=== PATIENT | male | born 1955 | race Caucasian/White ===

== ENCOUNTER 2021-05-09 03:05 | Emergency (ER) | payer OTHER ==
--- OUTSIDE RECORDS SUMMARY | 2021-05-09 03:07 | XMS REPORT | Clinical Summary ---
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 farmer 09/10/2020 Telephone Patient Access Services Ilene Mathias, RN after 05/09/2020 Social History Tobacco Use Types Packs/Day Years Used Date Never Assessed Sex Assigned at Date Recorded Not on file Job Start Date Occupation Industry Not on file Not on file Not on file Last Filed Vital Signs Not on file Plan of Treatment Not on file Results Not on fileafter 05/09/2020 Insurance Payer Benefit Plan / Subscriber ID Effective Phone Address T ype Group Louise MARTÍNEZ [id number] 2005-[address] [employer], [place] Net rk SIGNATURE [id number] ADMIN Miguel Gonzalez Personal/Family Self 1955 [facility] [place] [address]
--- OUTSIDE RECORDS SUMMARY | 2021-05-09 03:08 | XMS REPORT | Continuity of Care Document ---
:1955 Author Organization [facility] t Address [address] [place] [address] Care Team Providers Name Role Phone MAME Attending Clinician Unavailable Nickell_K Attending Clinician Unavailable Mey LIAO Y Attending Clinician Unavailable ALMA WARE Attending Clinician Unavailable Pawel Weinstein Attending Clinician [phone] CALOS PANIAGUA Attending Clinician Unavailable Calos Paniagua Attending Clinician [phone] DANIELA Attending Clinician Unavailable Nickell_K Admitting Clinician Unavailable Olegario ENNIS Admitting Clinician Unavailable Payers Payer Name Policy Type Policy Number Effective Date Expiration Date Jose fried TANYA COLLINS [id number] (PPO) 00:00:00 TANYA PATEL [id number] 2007 MD Tremayne COLLINS-AETNA 00:00:00 SIGNATURE [id number] [facility] [address] [place] [address] [id number] Problems This patient has no known problems. Allergies, Adverse Reactions, Alerts Allergy Allergy Status Severity Reaction(s) Onset Inactive Treating Comm ents Source Name Type Date Date Clinician NO KNOWN Allergy Active [facility] Social History Social Habit Start Date Stop Date Quantity Comments Source Sex Assigned At [birth year] MD Hauser 00:00:00 00:00:00 Medications This patient has no known medications. Vital Signs Vital Name Observation Time Observation Value Comments Source HEIGHT 2020-09-12 12:25:00 188 cm WEIGHT 2020-09-12 12:25:00 111.131 kg HEIGHT 2020-09-12 03:07:00 188 cm WEIGHT 2020-09-12 03:07:00 111.131 kg HEIGHT 2020-09-12 12:25:00 188 cm WEIGHT 2020-09-12 12:25:00 111.131 kg HEIGHT 2020-09-12 03:07:00 188 cm WEIGHT 2020-09-12 03:07:00 111.131 kg Procedures This patient has no known procedures. Encounters Start End Encounter Admission Attending Care Care Encounter Source Date/Time Date/Time Type Type Clinicians Facility Department ID 2021-05-05 2021-05-05 Outpatient MAME [facility] [place] 00:00:00 00:00:00 GRICEL 411 [facility] 2021-05-03 2021-05-03 Outpatient MAME [facility] [place] 00:00:00 00:00:00 GRICEL 337 [facility] 2021-04-26 2021-04-26 Outpatient MAME [facility] [place] 00:00:00 00:00:00 GRICEL 183 [facility] 2021-04-21 2021-04-21 Outpatient Nickell_K [facility] [id number] [place] 03:17:00 03:17:00 [id number] [facility] 2021-04-21 2021-04-21 Outpatient MAME [facility] [place] 00:00:00 00:00:00 GRICEL 861 [facility] 2021-04-19 2021-04-19 Outpatient SHERRICOELVIE [facility] [place] 00:00:00 00:00:00 GRICEL 776 [facility] 2021-04-18 2021-04-18 Outpatient SHERRICOELVIE [facility] [place] 00:00:00 00:00:00 GRICEL 055 [facility] 2021-04-07 2021-04-07 Outpatient MAME [facility] [place] 00:00:00 00:00:00 GRICEL 903 [facility] 2021-04-05 2021-04-05 Outpatient MAME [facility] [place] 00:00:00 00:00:00 GRICEL 849 [facility] 2021-04-04 2021-04-04 Outpatient DARCOURT, [facility] [id number] [place] 00:00:00 00:00:00 GRICEL [address] 2021-03-24 2021-03-24 Outpatient DARCOURT, H [facility] [id number] [place] 00:00:00 00:00:00 GRICEL 240 [facility] 2021-03-22 2021-03-22 Outpatient DARCOURT, [facility] [id number] [place] 00:00:00 00:00:00 GRICEL 185 [facility] 2021-03-21 2021-03-21 Outpatient DARCOURT, [facility] [id number] [place] 00:00:00 00:00:00 GRICEL 876 [facility] 2021-03-10 2021-03-10 Outpatient DARCOURT, [facility] [id number] [place] 00:00:00 00:00:00 GRICEL 353 [facility] 2021-03-08 2021-03-08 Outpatient DARCOURT, [facility] [id number] [place] 00:00:00 00:00:00 GRICEL 258 [facility] 2021-03-04 2021-03-04 Outpatient DARCOURT, [facility] [id number] [place] 00:00:00 00:00:00 GRICEL 839 [facility] 2021-02-24 2021-02-24 Outpatient DARCOURT, [facility] [id number] [place] 00:00:00 00:00:00 GRICEL 936 [facility] 2021-02-22 2021-02-22 Outpatient DARCOURT, [facility] [id number] [place] 00:00:00 00:00:00 GRICEL 765 [facility] 2021-02-21 2021-02-21 Outpatient DARCOURT, [facility] [id number] [place] 00:00:00 00:00:00 GRICEL 084 [facility] 2021-02-16 2021-02-16 Outpatient DARCOURT, [facility] [id number] [place] 00:00:00 00:00:00 GRICEL 610 [facility] 2021-02-09 2021-02-09 Outpatient DARCOURT, [facility] [id number] [place] 00:00:00 00:00:00 GRICEL [address] 2021-02-07 2021-02-07 Outpatient DARCOURT, [facility] [id number] [place] 00:00:00 00:00:00 GRICEL [address] 2021-01-27 2021-01-27 Outpatient DARCOURT, [facility] [id number] [place] 00:00:00 00:00:00 GRICEL [address] 2021-01-25 2021-01-25 Outpatient DARCOURT, [facility] [id number] [place] 00:00:00 00:00:00 GRICEL [address] 2021-01-24 2021-01-24 Outpatient DARCOURT, [facility] [id number] [place] 00:00:00 00:00:00 GRICEL [address] 2021-01-14 2021-01-14 Outpatient DARCOURT, [facility] [id number] [place] 00:00:00 00:00:[address] GRICEL [address] 2021-01-12 2021-01-12 Outpatient DARCOURT, [facility] [id number] [place] 00:00:00 00:00:00 GRICEL [address] 2021-01-05 2021-01-05 Outpatient DARCOURT, [facility] [id number] [place] 00:00:00 00:00:00 GRICEL 136 [facility] 2020-12-29 2020-12-29 Outpatient DARCOURT, [facility] [id number] [place] 00:00:00 00:00:00 GRICEL 792 [facility] 2020-11-26 2020-11-26 [facility]ell[id number] [place] 01:03:00 01:03:00 [id number] [facility] 2020-10-21 2020-10-21 Outpatient Nickell_K [facility] [id number] [place] 02:00:00 02:00:00 [id number] [facility] 2020-09-16 2020-09-16 Outpatient Nickell_K [facility] [id number] [place] 01:21:00 01:21:00 [id number] [facility] 2020-09-12 2020-09-12 Emergency ER [facility] [id number] [facility] 02:33:00 02:33:00 2020-08-24 2020-08-24 Outpatient Nickell_K [facility] [id number] [place] 11:49:00 11:49:00 [id number] [facility] 2020-08-23 2020-08-23 Outpatient Nickell_K [facility] [id number] [place] 12:11:00 12:11:00 [id number] [facility] 2020-08-23 2020-08-23 Outpatient Weinstein, [facility] [id number] [id number] 00:00:00 00:00:00 Beau [id number] Pawel [id number] 2020-08-20 2020-08-20 Outpatient Nickell_K [facility] [id number] [place] 04:17:00 04:17:00 [id number] [facility] 2020-08-18 2020-08-19 Outpatient ARCELIA, [facility] 7500 [facility] 18:15:00 10:45:00 JUVENAL 2020-08-13 2020-08-13 Outpatient Nickell_K [facility] [id number] [place] 10:29:00 10:29:00 [id number] [facility] 2020-08-12 2020-08-12 Outpatient Nickell_K [facility] [id number] [place] 03:11:00 03:11:00 [id number] [facility] 2020-08-12 2020-08-12 Outpatient Arcelia, [facility] [id number] 00:00:00 00:00:00 Juvenal Hoffy [id number] 2020-08-03 2020-08-03 Outpatient Nickell_K [facility] [id number] [place] 10:17:00 10:17:00 [id number] [facility] 2020-08-03 2020-08-03 Outpatient Nickell_K [facility] [id number] [place] 10:17:00 10:17:00 [id number] [facility] 2020-07-29 2020-07-29 Outpatient [facility], [facility] [id number] [place] 00:00:00 00:00:00 JENNIFFER [address] Results Test Description Test Time Test Comments Results Result Sour e Comments TISSUE EXAM 2020-10-04 Surgical Pathology Report 14:09:00 Case: [id number] Authorizing Provider: Magan Kulkarni, Collected: 09/15/2020 02:34 PM Ordering Location: [address] Med/Surg Received: 09/17/2020 07:49 AM Pathologist: Corinne Godinez MD Specimen: Large Intestine, Colon - Right/Ascending, right colon This addendum is to report BRAF Results (performed at [facility]). For full report, please see scanned document below. BRAF MUTATION: DETECTEDMUTATION: c.1799T>A (p.V600E)Addendum electronically signed by Corinne Godinez MD on 10/04/2020 at 2:08 PMThis addendum is to report MMR results. Immunohistochemistry (IHC) Testing for Mismatch Repair (MMR) Proteins MLH1 Result: Loss of nuclear expressionMSH2 Result: Intact nuclear expressionMSH6 Result: Intact nuclear expressionPMS2 Result: Loss of nuclear expressionBackground nonneoplastic tissue / internal control with intact nuclear expressionIHC Interpretation#Loss of nuclear expression of MLH1 and PMS2: testing for methylation of the MLH1 promoterand / or mutation of BRAF is indicated (the presence of a BRAF V600E mutation and / or FXR8gppxuojlahc suggests that the tumor is sporadic and germline evaluation is probably not indicated;absence of both MLH1 methylation and of BRAF V600E mutation suggests the possibility of Moses syndrome and sequencing and / or large deletion / duplication testing of germline MLH1 may beindicated) BRAF testing and MLH1 promoter methylation are being performed, addendum report to follow. # There are exceptions to the above IHC interpretations. These results should not be considered inisolation, and clinical correlation with genetic counseling is recommended to assess the need forgermline testing.Addendum electronically signed by Corinne Godinez MD on 09/22/2020 at 9:20 AMCOLON, RIGHT ASCENDING, RIGHT HEMICOLECTOMY: - INVASIVE ADENOCARCINOMA, MODERATELY DIFFERENTIATED - TUMOR INVADES THROUGH MUSCULARIS PROPRIA INTO PERICOLONIC ADIPOSE TISSUE AND INVOLVES SEROSA - LYMPHOVASCULAR INVASION IS PRESENT - PROXIMAL, DISTAL AND MESENTERIC MARGINS, NEGATIVE FOR TUMOR - ADENOCARCINOMA INVOLVING ONE OF TWENTY-ONE LYMPH NODES (1/21) - MISMATCH REPAIR RESULTS BY IMMUNOHISTOCHEMISTRY ARE PENDING, ADDENDUM REPORT TO FOLLOW Signing Pathologist Direct Phone Line: [phone] y signed by Corinne Godinez MD on 09/21/2020 at 12:25 PMCOLON AND RECTUM: Resection, Including Transanal Disk Excision of Rectal Neoplasms (COLON AND RECTUM: RESECTION - All Specimens)8th Edition - Protocol posted: [email or web address] Procedure: Right hemicolectomy TUMOR Tumor Site: Cecum Tumor Site: Ileocecal valve Histologic Type: Adenocarcinoma Histologic Grade: G2: Moderately differentiated Tumor Size: Greatest dimension (Centimeters): 5.5 cm Tumor Extension: Tumor invades the visceral peritoneum Macroscopic Tumor Perforation: Not identified Lymphovascular Invasion: Present Perineural Invasion: Not identified Treatment Effect: No known presurgical therapy MARGINS Margins: All margins are uninvolved by invasive carcinoma, high grade dysplasia / intramucosal carcinoma, and low grade dysplasia Margins Examined: Proximal Margins Examined: Distal Margins Examined: Radial (circumferential) or Mesenteric Distance of Invasive Carcinoma from Closest Margin: 1.5 cm Closest Margin: Radial (circumferential) or Mesenteric LYMPH NODES Number of Lymph Nodes Involved: 1 Number of Lymph Nodes Examined: 21 Tumor Deposits: Not identified PATHOLOGIC STAGE CLASSIFICATION (pTNM, AJCC 8th Edition) Primary Tumor (pT): pT4a Regional Lymph Nodes (pN): pN1a 40382, 18048, 52955 U2Hsfyuemsd neoplasm of colonLarge intestineThe specimen is designated "large intestine" and is received in a fresh state labeled with the patient's name and a surgical pathology number. The specimen consists of a portion of terminal ileum, colon and appendix with pericolonic fat that measures approximately 22 x 12 x 8 cm overall. The specimen has both a line of surgical andrez on the ileal proximal and and the distal colonic ends. The specimen is opened longitudinally to reveal a section of ileum that measures approximately 5.5 cm in length, the ileocecal valve with approximately 3.5 cm in width. The colonic portion measures approximately 14 cm in length. Adjacent to the ileocecal valve on the colonic side is an ulcerating circumferential tumor (5.5 x 5.0 x 3.0 cm). The tumor invades through muscularis propria into pericolonic adipose tissue and abuts the serosal surface. The tumor is 1.5 cm from the closest mesenteric/radial margin, 5.5 cm from the proximal margin and 14 cm from the distal margin. Ink code:Serosa: BlackSection code: Ileal margin A1; colonic margin, A2. Sections of ileocecal valve adjacent to tumor in cassette A3. Random colon in A4. Sections of tumor to include the inked surface in A5- A8 and a section of the tumor adjacent to grossly normal colonic tissue in cassette A9. [employer] sections are of lymph nodes in cassette A10 through A14. Appendix, A15; A16, five possible lymph nodes; A17 to A18, tumor to serosa; A19, six possible lymph nodes; A20, one possible lymph node bisected. MG/pl Performed. The interpretation of this case included the use of immunohistochemistry or special stains.MLH1, MSH2, MSH6, ZNZ2Ikuaihf Slides Examined: In-house known positive controls were evaluated along with the test tissue. These control slides run alongside of the patients sample show appropriate staining. Internal positive and negative controls when available are evaluated Immunohistochemistry technical testing was performed at [facility], Pathology Laboratory where it was developed and its performance characteristics were determined. It has not been cleared or approved by the U.S. Food and Drug Administration. The FDA has determined that such clearance or approval is not necessary. The test is used for clinical purposes. It should not be regarded as investigational or for research. This laboratory is certified under the Clinical Laboratory Improvement Amendments of 1988 (CLIA-88) as qualified to perform high complexity clinical laboratory testing.[facility], Department of Pathology, [address] [place] [address], Zwnbgw [facility], Department of Pathology, [address] [place] [address], [facility], [facility] of [facility], [address] [place] [address], POCT-GLUCOSE METER 2020-09-20 11:08:00 Test Item Value Reference Range Interpretation Comme nts POC-GLUCOSE METER (BEAKER) 230 mg/dL 70-110 H : Notified RN/MD: TESTED AT [facility] 1317 (test code = 1538) [address] [facility] [address]: Computerized Table Cutter/Techni edwina ID = [id number] for Corry Zambrano en BASIC METABOLIC [id number] 05:02:00 Test Item Value Reference Range Interpretation Comments SODIUM (BEAKER) 133 meq/L 135-148 L (test code = 381) POTASSIUM (BEAKER) 3.5 meq/L 3.6-5.5 L (test code = 379) CHLORIDE (BEAKER) 102 meq/L 98-106 (test code = 382) CO2 (BEAKER) (test 22 meq/L 20-29 code = 355) BLOOD UREA NITROGEN 7 mg/dL 10-26 L (BEAKER) (test code = 354) CREATININE (BEAKER) 0.44 mg/dL 0.50-1.20 L (test code = 358) GLUCOSE RANDOM 177 mg/dL 70-110 H (BEAKER) (test code = 652) CALCIUM (BEAKER) 8.5 mg/dL 8.5-10.5 (test code = 697) EGFR (BEAKER) (test 195 mL/min/1.73 ESTIM ATED GFR IS code = 1092) sq m NOT ACCURATE CREATININE CLEARANCE IN PREDICTING GLOMERULAR FILTRATION RATE . ESTIMATED GFR I S NOT APPLICABLE FOR DIALYSIS PATIEN TS. Computerized Table Cutter ID - [id number] ID - [id number] ID - [id number] ID - FBSF70Yqiaihrg ID - KURI87Ttkikybf ID - MAMD36Iomhdslu ID - XNPR87Imbepbfz ID - XKVE70Mgjqbzwd ID - BFAJ19Pwptcxvy ID - UOXF49Uovmvobm ID - FQKG02Tklurdms ID - HJSZ69Naatyovk ID - [id number] (HEMOGRAM ONLY)2020-09-20 04:46:00 Test Item Value Reference Range Interpretation Comments WHITE BLOOD CELL COUNT (BEAKER) 9.7 K/ L 4.0-10.0 (test code = 775) RED BLOOD CELL COUNT (BEAKER) 3.64 M/ L 4.20-5.80 L (test code = 761) HEMOGLOBIN (BEAKER) (test code = 8.5 GM/DL 13.0-16.8 L 410) HEMATOCRIT (BEAKER) (test code = 27.6 % 36.0-50.0 L 411) MEAN CORPUSCULAR VOLUME (BEAKER) 75.8 fL 82.0-99.0 L (test code = 753) MEAN CORPUSCULAR HEMOGLOBIN 23.4 pg 27.0-33.0 L (BEAKER) (test code = 751) MEAN CORPUSCULAR HEMOGLOBIN CONC 30.8 GM/DL 32.0-36.0 L (BEAKER) (test code = 752) RED CELL DISTRIBUTION WIDTH 20.1 % 12.0-15.0 H (BEAKER) (test code = 412) PLATELET COUNT (BEAKER) (test 517 K/CU MM 150-430 H code = 756) MEAN PLATELET VOLUME (BEAKER) 8.5 fL 6.0-11.5 (test code = 754) NUCLEATED RED BLOOD CELLS 0 /100 WBC 0-0 (BEAKER) (test code = 413) POCT-GLUCOSE [id number] 21:32:00 Test Item Value Reference Range Interpretation Comments POC-GLUCOSE METER 200 mg/dL 70-110 H : TESTED A T [facility] 1317 (BEAKER) (test code [address], = 1538) [place] [address]: Computerized Table Cutter/Techni edwina ID = [id number] for Conchis Mixon POCT-GLUCOSE [id number] 15:28:00 Test Item Value Reference Range Interpretation Comments POC-GLUCOSE METER 258 mg/dL 70-110 H : TESTED A T [facility] 1317 (BEAKER) (test code [address], = 1538) [place] [id number]: Computerized Table Cutter/Techni edwina ID = [id number] for Iesha verma, Barbara POCT-GLUCOSE [id number] 11:17:00 Test Item Value Reference Range Interpretation Comments POC-GLUCOSE METER 188 mg/dL 70-110 H : TESTED A T [facility] 1317 (BEAKER) (test code [address], = 1538) [place] [id number]: Computerized Table Cutter/Techni edwina ID = [id number] for Iesha verma, Barbara POCT-GLUCOSE [id number] 08:58:00 Test Item Value Reference Range Interpretation Comments POC-GLUCOSE METER 188 mg/dL 70-110 H : TESTED A T [facility]17 (BEAKER) (test code [address], = 1538) [place] [id number]: Computerized Table Cutter/Techni edwina ID = [id number] for Barbara Mcneill POCT-GLUCOSE [id number] 20:56:00 Test Item Value Reference Range Interpretation Comments POC-GLUCOSE METER 217 mg/dL 70-110 H : TESTED A T [facility]17 (BEAKER) (test code [address], = 1538) [place] [id number]: Computerized Table Cutter/Techni edwina ID = [id number] for Sammie Aparicio POCT-GLUCOSE [id number] 16:52:00 Test Item Value Reference Range Interpretation Comments POC-GLUCOSE METER 137 mg/dL 70-110 H : TESTED A T [facility]17 (BEAKER) (test code [address], = 1538) [place] [address]: Computerized Table Cutter/Techni edwina ID = [id number] for Lulu Irais phan POCT-GLUCOSE [id number] 11:26:00 Test Item Value Reference Range Interpretation Comments POC-GLUCOSE METER 238 mg/dL 70-110 H : TESTED A T [facility]17 (BEAKER) (test code [address], = 1538) [place] [address]: Computerized Table Cutter/Techni edwina ID = [id number] for Barbara Mcneill POCT-GLUCOSE [id number] 08:12:00 Test Item Value Reference Range Interpretation Comments POC-GLUCOSE METER 199 mg/dL 70-110 H : TESTED A T [facility] 1317 (BEAKER) (test code [address], = 1538) [place] [address]: Computerized Table Cutter/Techni edwina ID = [id number] for Barbara Mcneill BASIC METABOLIC [id number] 06:20:00 Test Item Value Reference Range Interpretation Comments SODIUM (BEAKER) 134 meq/L 135-148 L (test code = 381) POTASSIUM (BEAKER) 3.8 meq/L 3.6-5.5 (test code = 379) CHLORIDE (BEAKER) 102 meq/L 98-106 (test code = 382) CO2 (BEAKER) (test 23 meq/L 20- code = 355) BLOOD UREA NITROGEN < mg/dL 10-26 L (BEAKER) (test code = 354) CREATININE (BEAKER) 0.55 mg/dL 0.50-1.20 (test code = 358) GLUCOSE RANDOM 176 mg/dL 70-110 H (BEAKER) (test code = 652) CALCIUM (BEAKER) 8.4 mg/dL 8.5-10.5 L (test code = 697) EGFR (BEAKER) (test 150 mL/min/1.73 ESTIM ATED GFR IS code = 1092) sq m NOT ACCURATE CREATININE CLEARANCE IN PREDICTING GLOMERULAR FILTRATION RATE . ESTIMATED GFR I S NOT APPLICABLE FOR DIALYSIS PATIEN TS. Computerized Table Cutter ID - [id number] ID - [id number] ID - KREE17Vtqzwkxj ID - CJSA75Ugxezpnx ID - MSZA52Wfromkaw ID - LNUM20Hgriobuu ID - MFSW97Wzdkzeop ID - JVHY57Lyaesygs ID - NVDC85Ztcinpho ID - QXTJ69Mdqvrilj ID - LLNY26Jxbrtwrq ID - [id number] (HEMOGRAM ONLY)2020-09-18 05:59:00 Test Item Value Reference Range Interpretation Comments WHITE BLOOD CELL COUNT (BEAKER) 12.4 K/ L 4.0-10.0 H (test code = 775) RED BLOOD CELL COUNT (BEAKER) 3.33 M/ L 4.20-5.80 L (test code = 761) HEMOGLOBIN (BEAKER) (test code = 8.1 GM/DL 13.0-16.8 L 410) HEMATOCRIT (BEAKER) (test code = 25.8 % 36.0-50.0 L 411) MEAN CORPUSCULAR VOLUME (BEAKER) 77.5 fL 82.0-99.0 L (test code = 753) MEAN CORPUSCULAR HEMOGLOBIN 24.3 pg 27.0-33.0 L (BEAKER) (test code = 751) MEAN CORPUSCULAR HEMOGLOBIN CONC 31.4 GM/DL 32.0-36.0 L (BEAKER) (test code = 752) RED CELL DISTRIBUTION WIDTH 20.2 % 12.0-15.0 H (BEAKER) (test code = 412) PLATELET COUNT (BEAKER) (test 442 K/CU MM 150-430 H code = 756) MEAN PLATELET VOLUME (BEAKER) 8.9 fL 6.0-11.5 (test code = 754) NUCLEATED RED BLOOD CELLS 0 /100 WBC 0-0 (BEAKER) (test code = 413) POCT-GLUCOSE [id number] 21:39:00 Test Item Value Reference Range Interpretation Comments POC-GLUCOSE METER 192 mg/dL 70-110 H : TESTED A T [facility] (BEAKER) (test code [facility], = 1538) [place] [id number] 478: Computerized Table Cutter/Techni edwina ID = [id number] for Conchis Mixon POCT-GLUCOSE [id number] 13:18:00 Test Item Value Reference Range Interpretation Comments POC-GLUCOSE METER 175 mg/dL 70-110 H : TESTED A T [facility] 1317 (BEAKER) ([facility], = 1538) [place] [id number]: Computerized Table Cutter/Techni edwina ID = [id number] for Yordan oscar Nicki POCT-GLUCOSE [id number] 09:12:00 Test Item Value Reference Range Interpretation Comments POC-GLUCOSE METER 209 mg/dL 70-110 H : TESTED A T [facility] 1317 (BEAKER) (test [facility], = 1538) [place] [id number]: Computerized Table Cutter/Techni edwina ID = [id number] for Yordan h, Nicki COMPREHENSIVE METABOLIC [id number] 06:04:00 Test Item Value Reference Range Interpretation Comments TOTAL PROTEIN 5.3 gm/dL 6.0-8.5 L (BEAKER) (test code = 770) ALBUMIN (BEAKER) 2.8 g/dL 3.5-5.0 L (test code = 1145) ALKALINE PHOSPHATASE 64 U/L 30-115 (BEAKER) (test code = 346) BILIRUBIN TOTAL 0.5 mg/dL 0.1-1.2 (BEAKER) (test code = 377) SODIUM (BEAKER) (test 133 meq/L 135-148 L code = 381) POTASSIUM (BEAKER) 3.6 meq/L 3.6-5.5 (test code = 379) CHLORIDE (BEAKER) 101 meq/L 98-106 (test code = 382) CO2 (BEAKER) (test 22 meq/L 20-29 code = 355) BLOOD UREA NITROGEN 3 mg/dL 10-26 L (BEAKER) (test code = 354) CREATININE (BEAKER) 0.54 mg/dL 0.50-1.20 (test code = 358) GLUCOSE RANDOM 167 mg/dL 70-110 H (BEAKER) (test code = 652) CALCIUM (BEAKER) 8.3 mg/dL 8.5-10.5 L (test code = 697) AST (SGOT) (BEAKER) 11 U/L 5-40 (test code = 353) ALT (SGPT) (BEAKER) 10 U/L 5-50 (test code = 347) EGFR (BEAKER) (test 154 ESTIMATE D GFR IS code = 1092) mL/min/1.73 sq NOT ACCURA TE m CREATININE CLEARANCE IN PREDICTING GLOMERULAR FILTRATION RATE . ESTIMATED GFR I S NOT APPLICABLE FOR DIALYSIS PATIEN TS. Computerized Table Cutter ID - [id number] ID - VVVQ87Iegsqmex ID - KNDV80Sgswhhgg ID - OXQM86Qjkwasos ID - BNGB31Oqfaqxhj ID - QPTC49Smlrpjad ID - JZRW01Aooujitg ID - NRLZ26Jvysiodt ID - VFFP75Hwoqkttv ID - FHXV78Xajrseok ID - PXVP72Axeyfjfu ID - CDOD06Tampznbg ID - MXKJ89Uwqtdfnb ID - DPDA90Xtnnawss ID - UYAM80Zvjmwjqc ID - [id number] 06:01:00 Test Item Value Reference Range Interpretation Comments MAGNESIUM (BEAKER) (test code = 1.3 mg/dL 1.5-3.0 L 627) Computerized Table Cutter ID - SHYD68Iuxkyfxi ID - FFJK50[place] ID - ATJI07Ztvgsjbp ID - [id number] CBC W/PLT COUNT & AUTO [id number] 05:49:00 Test Item Value Reference Range Interpretation Comments WHITE BLOOD CELL COUNT (BEAKER) 15.2 K/ L 4.0-10.0 H (test code = 775) RED BLOOD CELL COUNT (BEAKER) 3.50 M/ L 4.20-5.80 L (test code = 761) HEMOGLOBIN (BEAKER) (test code = 8.5 GM/DL 13.0-16.8 L 410) HEMATOCRIT (BEAKER) (test code = 26.7 % 36.0-50.0 L 411) MEAN CORPUSCULAR VOLUME (BEAKER) 76.3 fL 82.0-99.0 L (test code = 753) MEAN CORPUSCULAR HEMOGLOBIN 24.3 pg 27.0-33.0 L (BEAKER) (test code = 751) MEAN CORPUSCULAR HEMOGLOBIN CONC 31.8 GM/DL 32.0-36.0 L (BEAKER) (test code = 752) RED CELL DISTRIBUTION WIDTH 20.4 % 12.0-15.0 H (BEAKER) (test code = 412) PLATELET COUNT (BEAKER) (test 407 K/CU MM 150-430 code = 756) MEAN PLATELET VOLUME (BEAKER) 8.8 fL 6.0-11.5 (test code = 754) NUCLEATED RED BLOOD CELLS 0 /100 WBC 0-0 (BEAKER) (test code = 413) NEUTROPHILS RELATIVE PERCENT 68 % (BEAKER) (test code = 429) LYMPHOCYTES RELATIVE PERCENT 15 % (BEAKER) (test code = 430) MONOCYTES RELATIVE PERCENT 13 % (BEAKER) (test code = 431) EOSINOPHILS RELATIVE PERCENT 3 % (BEAKER) (test code = 432) BASOPHILS RELATIVE PERCENT 0 % (BEAKER) (test code = 437) NEUTROPHILS ABSOLUTE COUNT 10.31 K/ L 1.80-8.00 H (BEAKER) (test code = 670) LYMPHOCYTES ABSOLUTE COUNT 2.31 K/ L 1.48-4.50 (BEAKER) (test code = 414) MONOCYTES ABSOLUTE COUNT (BEAKER) 1.99 K/ L 0.00-1.30 H (test code = 415) EOSINOPHILS ABSOLUTE COUNT 0.45 K/ L 0.00-0.50 (BEAKER) (test code = 416) BASOPHILS ABSOLUTE COUNT (BEAKER) 0.05 K/ L 0.00-0.20 (test code = 417) IMMATURE GRANULOCYTES-RELATIVE 1 % 0-0 H PERCENT (BEAKER) (test code = 2801) POCT-GLUCOSE [id number] 19:43:00 Test Item Value Reference Range Interpretation Comments POC-GLUCOSE METER 159 mg/dL 70-110 H : TESTED A T [facility] (BEAKER) (test code [facility] [address], = 1538) [facility] [address]: Computerized Table Cutter/Techni edwina ID = [id number] for Tamie Schreiber POCT-GLUCOSE [id number] 15:21:00 Test Item Value Reference Range Interpretation Comments POC-GLUCOSE METER 177 mg/dL 70-110 H : TESTED A T [facility] [address]17 (BEAKER) (test code [address], = 1538) [facility] 77 [address]: Computerized Table Cutter/Techni edwina ID = [id number] for Buff parris, Rula POCT-GLUCOSE [id number] 11:26:00 Test Item Value Reference Range Interpretation Comments POC-GLUCOSE METER 162 mg/dL 70-110 H : TESTED A T [facility] [address]17 (BEAKER) (test code [address], = 1538) [facility] 77 [address]: Computerized Table Cutter/Techni edwina ID = [id number] for Buff ord, Rula CBC W/PLT COUNT & AUTO [id number] 07:42:00 Test Item Value Reference Range Interpretation Comments WHITE BLOOD CELL COUNT (BEAKER) 16.5 K/ L 4.0-10.0 H (test code = 775) RED BLOOD CELL COUNT (BEAKER) 3.50 M/ L 4.20-5.80 L (test code = 761) HEMOGLOBIN (BEAKER) (test code = 8.5 GM/DL 13.0-16.8 L 410) HEMATOCRIT (BEAKER) (test code = 26.9 % 36.0-50.0 L 411) MEAN CORPUSCULAR VOLUME (BEAKER) 76.9 fL 82.0-99.0 L (test code = 753) MEAN CORPUSCULAR HEMOGLOBIN 24.3 pg 27.0-33.0 L (BEAKER) (test code = 751) MEAN CORPUSCULAR HEMOGLOBIN CONC 31.6 GM/DL 32.0-36.0 L (BEAKER) (test code = 752) RED CELL DISTRIBUTION WIDTH 20.1 % 12.0-15.0 H (BEAKER) (test code = 412) PLATELET COUNT (BEAKER) (test 363 K/CU MM 150-430 code = 756) MEAN PLATELET VOLUME (BEAKER) 8.8 fL 6.0-11.5 (test code = 754) NUCLEATED RED BLOOD CELLS 0 /100 WBC 0-0 (BEAKER) (test code = 413) NEUTROPHILS RELATIVE PERCENT 76 % (BEAKER) (test code = 429) LYMPHOCYTES RELATIVE PERCENT 11 % (BEAKER) (test code = 430) MONOCYTES RELATIVE PERCENT 11 % (BEAKER) (test code = 431) EOSINOPHILS RELATIVE PERCENT 2 % (BEAKER) (test code = 432) BASOPHILS RELATIVE PERCENT 0 % (BEAKER) (test code = 437) NEUTROPHILS ABSOLUTE COUNT 12.52 K/ L 1.80-8.00 H (BEAKER) (test code = 670) LYMPHOCYTES ABSOLUTE COUNT 1.75 K/ L 1.48-4.50 (BEAKER) (test code = 414) MONOCYTES ABSOLUTE COUNT (BEAKER) 1.84 K/ L 0.00-1.30 H (test code = 415) EOSINOPHILS ABSOLUTE COUNT 0.25 K/ L 0.00-0.50 (BEAKER) (test code = 416) BASOPHILS ABSOLUTE COUNT (BEAKER) 0.05 K/ L 0.00-0.20 (test code = 417) IMMATURE GRANULOCYTES-RELATIVE 1 % 0-0 H PERCENT (BEAKER) (test code = 2801) COMPREHENSIVE METABOLIC [id number] 06:05:00 Test Item Value Reference Range Interpretation Comments TOTAL PROTEIN 5.6 gm/dL 6.0-8.5 L (BEAKER) (test code = 770) ALBUMIN (BEAKER) 3.0 g/dL 3.5-5.0 L (test code = 1145) ALKALINE PHOSPHATASE 68 U/L 30-115 (BEAKER) (test code = 346) BILIRUBIN TOTAL 0.4 mg/dL 0.1-1.2 (BEAKER) (test code = 377) SODIUM (BEAKER) (test 132 meq/L 135-148 L code = 381) POTASSIUM (BEAKER) 4.2 meq/L 3.6-5.5 (test code = 379) CHLORIDE (BEAKER) 102 meq/L 98-106 (test code = 382) CO2 (BEAKER) (test 20 meq/L 20-29 code = 355) BLOOD UREA NITROGEN < mg/dL 10-26 L (BEAKER) (test code = 354) CREATININE (BEAKER) 0.59 mg/dL 0.50-1.20 (test code = 358) GLUCOSE RANDOM 162 mg/dL 70-110 H (BEAKER) (test code = 652) CALCIUM (BEAKER) 8.6 mg/dL 8.5-10.5 (test code = 697) AST (SGOT) (BEAKER) 19 U/L 5-40 (test code = 353) ALT (SGPT) (BEAKER) 10 U/L 5-50 (test code = 347) EGFR (BEAKER) (test 139 ESTIMATE D GFR IS code = 1092) mL/min/1.73 sq NOT ACCURA TE m CREATININE CLEARANCE IN PREDICTING GLOMERULAR FILTRATION RATE . ESTIMATED GFR I S NOT APPLICABLE FOR DIALYSIS PATIEN TS. Computerized Table Cutter ID - LITOOperator ID - LITOOperator ID - LITOOperator ID - LITOOperator ID - LITOOperator ID - LITOOperator ID - LITOOperator ID - LITOOperator ID - LITOOperator ID - LITOOperator ID - LITOOperator ID - LITOOperator ID - LITOOperator ID - LITOOperator ID - [id number] 06:02:00 Test Item Value Reference Range Interpretation Comments MAGNESIUM (BEAKER) (test code = 1.3 mg/dL 1.5-3.0 L 627) Computerized Table Cutter ID - LITOOperator ID - LITOOperator ID - LITOOperator ID - LITOBASIC METABOLIC [id number] 03:21:00 Test Item Value Reference Range Interpretation Comments SODIUM (BEAKER) 133 meq/L 135-148 L (test code = 381) POTASSIUM (BEAKER) 3.9 meq/L 3.6-5.5 (test code = 379) CHLORIDE (BEAKER) 102 meq/L 98-106 (test code = 382) CO2 (BEAKER) (test 21 meq/L 20-29 code = 355) BLOOD UREA NITROGEN < mg/dL 10-26 L (BEAKER) (test code = 354) CREATININE (BEAKER) 0.56 mg/dL 0.50-1.20 (test code = 358) GLUCOSE RANDOM 153 mg/dL 70-110 H (BEAKER) (test code = 652) CALCIUM (BEAKER) 8.6 mg/dL 8.5-10.5 (test code = 697) EGFR (BEAKER) (test 147 mL/min/1.73 ESTIM ATED GFR IS code = 1092) sq m NOT ACCURATE CREATININE CLEARANCE IN PREDICTING GLOMERULAR FILTRATION RATE . ESTIMATED GFR I S NOT APPLICABLE FOR DIALYSIS PATIEN TS. Computerized Table Cutter ID - LITOOperator ID - LITOOperator ID - LITOOperator ID - LITOOperator ID - LITOOperator ID - LITOOperator ID - LITOOperator ID - LITOOperator ID - LITOOperator ID - LITOOperator ID - LITOOperator ID - LITOOperator ID - LITOCBC W/PLT COUNT & AUTO [id number] 02:54:00 Test Item Value Reference Range Interpretation Comments WHITE BLOOD CELL COUNT (BEAKER) 20.0 K/ L 4.0-10.0 H (test code = 775) RED BLOOD CELL COUNT (BEAKER) 3.57 M/ L 4.20-5.80 L (test code = 761) HEMOGLOBIN (BEAKER) (test code = 8.7 GM/DL 13.0-16.8 L 410) HEMATOCRIT (BEAKER) (test code = 27.3 % 36.0-50.0 L 411) MEAN CORPUSCULAR VOLUME (BEAKER) 76.5 fL 82.0-99.0 L (test code = 753) MEAN CORPUSCULAR HEMOGLOBIN 24.4 pg 27.0-33.0 L (BEAKER) (test code = 751) MEAN CORPUSCULAR HEMOGLOBIN CONC 31.9 GM/DL 32.0-36.0 L (BEAKER) (test code = 752) RED CELL DISTRIBUTION WIDTH 19.9 % 12.0-15.0 H (BEAKER) (test code = 412) PLATELET COUNT (BEAKER) (test 383 K/CU MM 150-430 code = 756) MEAN PLATELET VOLUME (BEAKER) 8.9 fL 6.0-11.5 (test code = 754) NUCLEATED RED BLOOD CELLS 0 /100 WBC 0-0 (BEAKER) (test code = 413) NEUTROPHILS RELATIVE PERCENT 78 % (BEAKER) (test code = 429) LYMPHOCYTES RELATIVE PERCENT 11 % (BEAKER) (test code = 430) MONOCYTES RELATIVE PERCENT 10 % (BEAKER) (test code = 431) EOSINOPHILS RELATIVE PERCENT 0 % (BEAKER) (test code = 432) BASOPHILS RELATIVE PERCENT 0 % (BEAKER) (test code = 437) NEUTROPHILS ABSOLUTE COUNT 15.57 K/ L 1.80-8.00 H (BEAKER) (test code = 670) LYMPHOCYTES ABSOLUTE COUNT 2.27 K/ L 1.48-4.50 (BEAKER) (test code = 414) MONOCYTES ABSOLUTE COUNT (BEAKER) 1.89 K/ L 0.00-1.30 H (test code = 415) EOSINOPHILS ABSOLUTE COUNT 0.08 K/ L 0.00-0.50 (BEAKER) (test code = 416) BASOPHILS ABSOLUTE COUNT (BEAKER) 0.07 K/ L 0.00-0.20 (test code = 417) IMMATURE GRANULOCYTES-RELATIVE 1 % 0-0 H PERCENT (BEAKER) (test code = 2801) POCT-GLUCOSE [id number] 22:27:00 Test Item Value Reference Range Interpretation Comments POC-GLUCOSE METER 178 mg/dL 70-110 H : TESTED A T [facility] 1317 (BEAKER) (test code [facility], = 1538) [place] [id number]: Computerized Table Cutter/Techni edwina ID = [id number] for Marceilno kerr Conchis POCT-GLUCOSE [id number] 17:28:00 Test Item Value Reference Range Interpretation Comments POC-GLUCOSE METER 216 mg/dL 70-110 H : TESTED A T [facility] 1317 (BEAKER) (test code [facility], = 1538) [place] [address]: Computerized Table Cutter/Techni edwina ID = [id number] for Buff ord, Rula POCT-GLUCOSE [id number] 11:17:00 Test Item Value Reference Range Interpretation Comments POC-GLUCOSE METER 155 mg/dL 70-110 H : TESTED A T [facility] 1317 (BEAKER) (test code [facility] [address] [facility], = 1538) [place] [address]: Computerized Table Cutter/Techni edwina ID = [id number] for Buff ord, Rula POCT-GLUCOSE [id number] 07:16:00 Test Item Value Reference Range Interpretation Comments POC-GLUCOSE METER 152 mg/dL 70-110 H : TESTED A T [facility] 1317 (BEAKER) ([facility] 15[facility] [place] [id number]: Computerized Table Cutter/Techni edwina ID = [id number] for Buff ord, Rula POCT-GLUCOSE [id number] 20:28:00 Test Item Value Reference Range Interpretation Comments POC-GLUCOSE METER 176 mg/dL 70-110 H : TESTED A T [facility] 1317 (BEAKER) (test code [facility], = 1538) [place] [id number]: Computerized Table Cutter/Techni edwina ID = [id number] for Tamie Schreiber POCT-GLUCOSE [id number] 16:23:00 Test Item Value Reference Range Interpretation Comments POC-GLUCOSE METER 149 mg/dL 70-110 H : TESTED A T [facility] [address]17 (BEAKER) (test code [facility], = 1538) [place] [id number]: Computerized Table Cutter/Techni edwina ID = [id number] for Lulu u, Irais POCT-GLUCOSE [id number] 12:24:00 Test Item Value Reference Range Interpretation Comments POC-GLUCOSE METER 175 mg/dL 70-110 H : TESTED A T [facility] [address]17 (BEAKER) (test code [facility], = 1538) [place] [id number]: Computerized Table Cutter/Techni edwina ID = [id number] for Lulu u, Irais POCT-GLUCOSE [id number] 08:03:00 Test Item Value Reference Range Interpretation Comments POC-GLUCOSE METER 158 mg/dL 70-110 H : TESTED A T [facility] [address]17 (BEAKER) (test [facility] = 1538) [place] [id number]: Computerized Table Cutter/Techni edwina ID = [id number] for Lulu u, Irais BASIC METABOLIC [id number] 05:57:00 Test Item Value Reference Range Interpretation Comments SODIUM (BEAKER) 134 meq/L 135-148 L (test code = 381) POTASSIUM (BEAKER) 4.0 meq/L 3.6-5.5 (test code = 379) CHLORIDE (BEAKER) 104 meq/L 98-106 (test code = 382) CO2 (BEAKER) (test 23 meq/L 20-29 code = 355) BLOOD UREA NITROGEN 5 mg/dL 10-26 L (BEAKER) (test code = 354) CREATININE (BEAKER) 0.56 mg/dL 0.50-1.20 (test code = 358) GLUCOSE RANDOM 160 mg/dL 70-110 H (BEAKER) (test code = 652) CALCIUM (BEAKER) 8.1 mg/dL 8.5-10.5 L (test code = 697) EGFR (BEAKER) (test 147 mL/min/1.73 ESTIM ATED GFR IS code = 1092) sq m NOT ACCURATE CREATININE CLEARANCE IN PREDICTING GLOMERULAR FILTRATION RATE . ESTIMATED GFR I S NOT APPLICABLE FOR DIALYSIS PATIEN TS. Computerized Table Cutter ID - JUSTINOperator ID - JUSTINOperator ID - JUSTINOperator ID - JUSTINOperator ID - JUSTINOperator ID - JUSTINOperator ID - JUSTINOperator ID - JUSTINOperator ID - JUSTINOperator ID - [id number] 05:41:00 Test Item Value Reference Range Interpretation Comments MAGNESIUM (BEAKER) (test code = 1.6 mg/dL 1.5-3.0 627) Computerized Table Cutter ID - JUSTINOperator ID - JUSTINOperator ID - JUSTINOperator ID - ELLIE CBC W/PLT COUNT & AUTO [id number] 05:30:00 Test Item Value Reference Range Interpretation Comments WHITE BLOOD CELL COUNT (BEAKER) 12.1 K/ L 4.0-10.0 H (test code = 775) RED BLOOD CELL COUNT (BEAKER) 3.18 M/ L 4.20-5.80 L (test code = 761) HEMOGLOBIN (BEAKER) (test code = 7.4 GM/DL 13.0-16.8 L 410) HEMATOCRIT (BEAKER) (test code = 23.5 % 36.0-50.0 L 411) MEAN CORPUSCULAR VOLUME (BEAKER) 73.9 fL 82.0-99.0 L (test code = 753) MEAN CORPUSCULAR HEMOGLOBIN 23.3 pg 27.0-33.0 L (BEAKER) (test code = 751) MEAN CORPUSCULAR HEMOGLOBIN CONC 31.5 GM/DL 32.0-36.0 L (BEAKER) (test code = 752) RED CELL DISTRIBUTION WIDTH 18.4 % 12.0-15.0 H (BEAKER) (test code = 412) PLATELET COUNT (BEAKER) (test 344 K/CU MM 150-430 code = 756) MEAN PLATELET VOLUME (BEAKER) 9.0 fL 6.0-11.5 (test code = 754) NUCLEATED RED BLOOD CELLS 0 /100 WBC 0-0 (BEAKER) (test code = 413) NEUTROPHILS RELATIVE PERCENT 63 % (BEAKER) (test code = 429) LYMPHOCYTES RELATIVE PERCENT 22 % (BEAKER) (test code = 430) MONOCYTES RELATIVE PERCENT 11 % (BEAKER) (test code = 431) EOSINOPHILS RELATIVE PERCENT 3 % (BEAKER) (test code = 432) BASOPHILS RELATIVE PERCENT 1 % (BEAKER) (test code = 437) NEUTROPHILS ABSOLUTE COUNT 7.63 K/ L 1.80-8.00 (BEAKER) (test code = 670) LYMPHOCYTES ABSOLUTE COUNT 2.60 K/ L 1.48-4.50 (BEAKER) (test code = 414) MONOCYTES ABSOLUTE COUNT (BEAKER) 1.35 K/ L 0.00-1.30 H (test code = 415) EOSINOPHILS ABSOLUTE COUNT 0.30 K/ L 0.00-0.50 (BEAKER) (test code = 416) BASOPHILS ABSOLUTE COUNT (BEAKER) 0.07 K/ L 0.00-0.20 (test code = 417) IMMATURE GRANULOCYTES-RELATIVE 1 % 0-0 H PERCENT (BEAKER) (test code = 2801) HEMOGLOBIN AND [id number] 20:17:00 Test Item Value Reference Range Interpretation Comments HEMOGLOBIN (BEAKER) (test code = 7.6 GM/DL 13.0-16.8 L 410) HEMATOCRIT (BEAKER) (test code = 24.0 % 36.0-50.0 L 411) POCT-GLUCOSE [id number] 15:16:00 Test Item Value Reference Range Interpretation Comments POC-GLUCOSE METER 202 mg/dL 70-110 H : TESTED A [facility] 1317 (BEAKER) (test code [facility] [address], = 1538) [facility] [address]: Computerized Table Cutter/Techni edwina ID = [id number] for Buff ord, Rula HEMOGLOBIN AND [id number] 12:24:00 Test Item Value Reference Range Interpretation Comments HEMOGLOBIN (BEAKER) (test code = 8.5 GM/DL 13.0-16.8 L 410) HEMATOCRIT (BEAKER) (test code = 26.9 % 36.0-50.0 L 411) POCT-GLUCOSE [id number] 11:34:00 Test Item Value Reference Range Interpretation Comments POC-GLUCOSE METER 130 mg/dL 70-110 H : TESTED A T [facility] [address] (BEAKER) (test code [address], = 1538) [facility] [place] [address]: Computerized Table Cutter/Techni edwina ID = [id number] for Nu [place] CBC W/PLT COUNT & AUTO [id number] 07:42:00 Test Item Value Reference Range Interpretation Comments WHITE BLOOD CELL COUNT (BEAKER) 15.3 K/ L 4.0-10.0 H (test code = 775) RED BLOOD CELL COUNT (BEAKER) 3.34 M/ L 4.20-5.80 L (test code = 761) HEMOGLOBIN (BEAKER) (test code = 7.8 GM/DL 13.0-16.8 L 410) HEMATOCRIT (BEAKER) (test code = 24.9 % 36.0-50.0 L 411) MEAN CORPUSCULAR VOLUME (BEAKER) 74.6 fL 82.0-99.0 L (test code = 753) MEAN CORPUSCULAR HEMOGLOBIN 23.4 pg 27.0-33.0 L (BEAKER) (test code = 751) MEAN CORPUSCULAR HEMOGLOBIN CONC 31.3 GM/DL 32.0-36.0 L (BEAKER) (test code = 752) RED CELL DISTRIBUTION WIDTH 18.4 % 12.0-15.0 H (BEAKER) (test code = 412) PLATELET COUNT (BEAKER) (test 314 K/CU MM 150-430 code = 756) MEAN PLATELET VOLUME (BEAKER) 8.9 fL 6.0-11.5 (test code = 754) NUCLEATED RED BLOOD CELLS 0 /100 WBC 0-0 (BEAKER) (test code = 413) NEUTROPHILS RELATIVE PERCENT 67 % (BEAKER) (test code = 429) LYMPHOCYTES RELATIVE PERCENT 21 % (BEAKER) (test code = 430) MONOCYTES RELATIVE PERCENT 10 % (BEAKER) (test code = 431) EOSINOPHILS RELATIVE PERCENT 2 % (BEAKER) (test code = 432) BASOPHILS RELATIVE PERCENT 0 % (BEAKER) (test code = 437) NEUTROPHILS ABSOLUTE COUNT 10.19 K/ L 1.80-8.00 H (BEAKER) (test code = 670) LYMPHOCYTES ABSOLUTE COUNT 3.18 K/ L 1.48-4.50 (BEAKER) (test code = 414) MONOCYTES ABSOLUTE COUNT (BEAKER) 1.47 K/ L 0.00-1.30 H (test code = 415) EOSINOPHILS ABSOLUTE COUNT 0.26 K/ L 0.00-0.50 (BEAKER) (test code = 416) BASOPHILS ABSOLUTE COUNT (BEAKER) 0.06 K/ L 0.00-0.20 (test code = 417) IMMATURE GRANULOCYTES-RELATIVE 1 % 0-0 H PERCENT (BEAKER) (test code = 2801) [id number] 07:39:00 Test Item Value Reference Range Interpretation Comments MAGNESIUM (BEAKER) (test code = 1.4 mg/dL 1.5-3.0 L 627) Computerized Table Cutter ID - [id number] ID - [id number] ID - [id number] ID - [id number] BASIC METABOLIC [id number] 07:37:00 Test Item Value Reference Range Interpretation Comments SODIUM (BEAKER) 135 meq/L 135-148 (test code = 381) POTASSIUM (BEAKER) 4.3 meq/L 3.6-5.5 (test code = 379) CHLORIDE (BEAKER) 105 meq/L 98-106 (test code = 382) CO2 (BEAKER) (test 21 meq/L 20-29 code = 355) BLOOD UREA NITROGEN 15 mg/dL 10-26 (BEAKER) (test code = 354) CREATININE (BEAKER) 0.58 mg/dL 0.50-1.20 (test code = 358) GLUCOSE RANDOM 129 mg/dL 70-110 H (BEAKER) (test code = 652) CALCIUM (BEAKER) 8.2 mg/dL 8.5-10.5 L (test code = 697) EGFR (BEAKER) (test 142 mL/min/1.73 ESTIM ATED GFR IS code = 1092) sq m NOT ACCURATE CREATININE CLEARANCE IN PREDICTING GLOMERULAR FILTRATION RATE . ESTIMATED GFR I S NOT APPLICABLE FOR DIALYSIS PATIEN TS. Computerized Table Cutter ID - [id number] ID - [id number] ID - [id number] ID - [id number] ID - [id number] ID - [id number] ID - [id number] ID - [id number] ID - [id number], CTA [id number] 00:13:00Unlisted Reason for Exam - Click Yes and Enter Reason Below->No [facility] : 1955 Sex: MFINAL REPORT CLINICAL HISTORY: Bright red blood per rectum, history of ascending colon neoplasm. FINDINGS: Multiple axial images of the abdomen and pelvis were performed before and after the uncomplicated administration of IV contrast, utilizing a CT aortogram protocol. Coronal and sagittal reformats were created. 3-D imaging on an independent workstation was alsoperformed for optimal visualization of the arterial system in accordance with the aortogram protocol. Oral contrast was not given. This exam was performed according to our departmental dose-optimization program, which includes automated exposure control, adjustment of the mA and/or kV according to patient size and/or use of the iterative reconstruction technique. The examination is limited by the lack of delayed postcontrast imaging, which sometimes increases sensitivity for intraluminal, extravasated IV contrast. Comparison: None. There is no extravasated intraluminal IV contrast seen within the GI tract on postcontrast images. There is no aortic dissection or aneurysm. No periaortic hematoma is present. There is no major branch vessel occlusion. 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 The aneurysm measures 2.1 x 2.1 cm. There is distal opacification of the SMA branches. The celiac axis and SMA are normal in distribution. There are single renal arteries bilaterally. The CELESTINA, aortic and iliac bifurcations are patent. Abdomen and pelvis: Lower chest: Clear lungs. No pleural effusion. No pneumothorax. Normal visualized cardiac contours. Liver: No significant findings. Gallbladder and biliary tree: Cholelithiasis within a contracted gallbladder lumen. Spleen: No significant findings. Adrenal Glands: No significant findings. Kidneys and ureters: No significant findings. Stomach and Duodenum: No significant findings. Pancreas: No significant findings. Bowel: Circumferential mural thickening of the ascending colon with hazy adjacent fat stranding and several prominent but subcentimeter lymph nodes in the adjacent right lower quadrant mesentery. Scattered left colonic diverticulosis. No bowel obstruction or pneumatosis intestinalis. Appendix: Normal. Bladder: Distended with opacified urine. Reproductive organs: Prominent prostategland. Other: No free air, fluid or adenopathy Skeleton: No acute bony abnormality. IMPRESSION: No extravasated, intraluminal IV contrast within the GI tract to confirm a source of GI bleeding. Circumferential mural thickening of the ascending colon with adjacent inflammatory fat stranding. This correlates with the previous diagnosis of ascending colon malignancy. Several prominent but subcentimeter l ymph nodes in the adjacent right lower quadrant may reflect metastatic disease. Scattered left colonic diverticulosis. 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 Cholelithiasis. Prominent prostate gland. Signed: Benjie Herzog MDRort Verified Date/Time: 09/13/2020 00:13:53 CT, BRAIN, WITHOUT [id number] 23:46:00Unlisted Reason for Exam - Click Yes and Enter Reason Below- >YesUnlisted Reason for Exam->s/p [facility]itnessed [facility] : 1955 Sex: MFINAL REPORT EXAM/TECHNIQUE: Noncontrast CT of the head. INDICATION: Unwitnessed fall. COMPARISON: None. FINDINGS: Hall-white differentiation is preserved. No acuteintracranial hemorrhage. No extra-axial fluid collection. Ventricles are normal in appearance. Basalcisterns are patent. No midline shift. Cerebellar tonsils are normal in appearance. Orbits are normal. Paranasal sinuses are clear. Right mastoid effusion. Visualized nasopharynx is normal. No acute osseous processes or suspicious osseous lesion. Midline structures are normal. Visualized face and neck are unremarkable. Impression: No acute intracranial hemorrhage. Signed: Fredy Ozuna MDReport Verified Date/Time: 09/12/2020 23:46:45 POCT-GLUCOSE [id number] 22:41:00 Test Item Value Reference Range Interpretation Comments POC-GLUCOSE METER 163 mg/dL 70-110 H : TESTED A T [facility] (BEAKER) (test code [address], = 1538) [facility] [address]: Computerized Table Cutter/Techni edwina ID = [id number] for Conchis Mixon HEMOGLOBIN AND [id number] 22:25:00 Test Item Value Reference Range Interpretation Comments HEMOGLOBIN (BEAKER) (test code = 7.5 GM/DL 13.0-16.8 L 410) HEMATOCRIT (BEAKER) (test code = 24.7 % 36.0-50.0 L 411) HEMOGLOBIN AND [id number] 21:39:00 Test Item Value Reference Range Interpretation Comments HEMOGLOBIN (BEAKER) (test code = 8.4 GM/DL 13.0-16.8 L 410) HEMATOCRIT (BEAKER) (test code = 27.7 % 36.0-50.0 L 411) HEMOGLOBIN AND [id number] 18:21:00 Test Item Value Reference Range Interpretation Comments HEMOGLOBIN (BEAKER) (test code = 9.0 GM/DL 13.0-16.8 L 410) HEMATOCRIT (BEAKER) (test code = 30.2 % 36.0-50.0 L 411) POCT-GLUCOSE [id number] 17:42:00 Test Item Value Reference Range Interpretation Comments POC-GLUCOSE METER 116 mg/dL 70-110 H : TESTED A T SLSL 1317 (BEAKER) (test code [address], = 1538) [facility] 77 478: Computerized Table Cutter/Techni edwina ID = [id number] for Yordan h, Nicki POCT-GLUCOSE [id number] 13:08:00 Test Item Value Reference Range Interpretation Comments POC-GLUCOSE METER 103 mg/dL 70-110 : TESTED A T [facility] 1317 (BEAKER) (test code [address], = 1538) [facility] 77 478: Computerized Table Cutter/Techni edwina ID = [id number] for Yordan h, Nicki HEMOGLOBIN AND [id number] 10:37:00 Test Item Value Reference Range Interpretation Comments HEMOGLOBIN (BEAKER) (test code = 9.0 GM/DL 13.0-16.8 L 410) HEMATOCRIT (BEAKER) (test code = 29.3 % 36.0-50.0 L 411) SARS-COV2/RT-PCR ([facility])2020-09-12 10:26:00 Test Item Value Reference Range Interpretation Comments SARS-COV2/RT-PCR Negative Negative The SARS-Co V-2 target (test code = 6648521) nuclei c acids are not detected in thi s specimen. The presence of SARS-CoV-2/FLU/RSV viral nucleic acids cannot rule out co- infections or disease caused by other viral or bacterial pathogens. As with any molecular test, mutations within the target regions of the Xpert Xpress SARS-CoV-2/Flu/RSV test could affect primer and/or probe binding resulting in failure to detect the presence of virus or the virus being detected less predictably. False negative results may occur if the virus is present at levels below the analytical limit of detection in this specimen.This Xpert Xpress SARS-CoV-2/Flu/RSV test is a rapid, real-time RT-PCR test intended for the qualitative detection of nucleic acid from Xpert Xpress SARS-CoV-2/Flu/RSV in a nasopharyngeal swab specimen collected from individuals suspected of Xpert Xpress SARS-CoV-2/Flu/RSV by their healthcare provider. Results from [facility] Xpert Xpress SARS-CoV-2/Flu/RSV test should be correlated with the clinical history, epidemiological data, and other data available to the clinician evaluating the patient. Viral nucleic acid may persist in vivo, independent of virus viability. Detection of analyte target(s) does not imply that the corresponding virus(es) are infectious or are the causative agents for clinical symptoms.This test has not been Food and Drug Administration (FDA) cleared or approved and has been authorized by FDA under an Emergency Use Authorization (EUA). This EUA will be effective until the declaration that circumstances exist justifying the authorization of the emergency use of in vitro diagnostic tests for detection and/or diagnosis of COVID-19 is terminated under Section 564(b)(2) of the Act or the EUA is revoked under Section 564(g) of the Act.Fact Sheet for Healthcare Providers :https://www.TinderBox/Documents/Xpert%20Xpress%20SARS%20CoV-2/Fact%20Sheets/3 02-3902%36HWQW-GMI-1%20HEALTHCARE%20PROVIDERS%20FACT%20SHEET.pdfFact Sheet for Healthcare Patients:https://www.TinderBox /Documents/Xpert%20Xpress%20SARS%20Cov-2/Fact%20Sheets/302-3801%52AMJM-JFB-8%20P ATIENT%20FACT%20SHEET.pdfHEMOGLOBIN [id number] 08:40:00 Test Item Value Reference Range Interpretation Comments HEMOGLOBIN A1C (BEAKER) (test code = 7.3 % 4.3-6.1 H 368) Computerized Table Cutter ID - [id number] 07:18:00 Test Item Value Reference Range Interpretation Comments PROTIME (BEAKER) 10.9 seconds 9.3-12.0 Final Infor mation (test code = 759) (Auto Outp ut) INR (BEAKER) (test 0.98 See_Comment Final Inf ormation code = 370) (Auto Output) [Automated mess age] The system LiB generated this result transmitted ref erence range: <=5.90. The reference range was not used to int erpret this result as normal/abnormal . RECOMMENDED COUMADIN/WARFARIN INR THERAPY RANGESSTANDARD DOSE: 2.0 - 3.0 Includes: PROPHYLAXIS forvenous thrombosis, systemic embolization; TREATMENT for venous thrombosis and/or pulmonary embolus.HIGH RISK: Target INR is 2.5-3.5 for patients with mechanical heart valves.CT, [id number] 06:22:00Unlisted Reason for Exam - Click Yes and Enter Reason Below->NoWill this procedure require oral contrast?->No [facility] : 1955 Sex: MFINAL REPORT EXAM/TECHNIQUE: CT of the abdomen and pelvis with IV contrast. INDICATION: Acute abdominal pain. COMPARISON: None. FINDINGS: Lower thorax: No focal consolidation or suspicious pulmonary nodule. The visualized heart is unremarkable. Liver: The main portal vein is patent. No focal mass. Biliary: Cholelithiasis is present without CT findings of cholecystitis. The intrahepatic and extrahepatic bile ducts are normal. Adrenals: Unremarkable. Pancreas: Unremarkable. Spleen: Unremarkable. Kidneys: Symmetric bilateral nephrograms. No hydronephrosis. No focalrenal mass. Bowel: Colonic diverticulosis is present without CT findings of diverticulitis. Appendixis normal in appearance. There is mural thickening and fat stranding adjacent to the cecum. The small bowel and stomach are normal in appearance without findings of obstruction. Lymph nodes: No lymphadenopathy by size criteria. Mesentery: No ascites. No pneumoperitoneum. Pelvis: Prostatomegaly may represent benign prostatic hyperplasia. Seminal vesicles are unremarkable. The bladder is unremarkable in appearance. Vessels: Unremarkable. Osseous: No acute osseous process. No suspicious osseous lesions. Impression: Pericecal inflammation may represent an infectious, ischemic, or other inflammatory process. Signed: Fredy Ozuna MDReport Verified Date/Time: 09/12/2020 06:22:15 OCCULT BLOOD, [id number] 05:51:00 Test Item Value Reference Range Interpretation Comments FECAL OCCULT BLOOD (BEAKER) (test Positive Negative A code = 618) HEPATIC FUNCTION [id number] 05:28:00 Test Item Value Reference Range Interpretation Comments TOTAL PROTEIN (BEAKER) (test code = 6.2 gm/dL 6.0-8.5 770) ALBUMIN (BEAKER) (test code = 1145) 3.5 g/dL 3.5-5.0 BILIRUBIN TOTAL (BEAKER) (test code < mg/dL 0.1-1.2 = 377) BILIRUBIN DIRECT (BEAKER) (test 0.1 mg/dL 0.0-0.4 code = 706) ALKALINE PHOSPHATASE (BEAKER) (test 57 U/L 30-115 code = 346) AST (SGOT) (BEAKER) (test code = 7 U/L 5-40 353) ALT (SGPT) (BEAKER) (test code = 6 U/L 5-50 347) Computerized Table Cutter ID - [id number] ID - [id number] ID - [id number] ID - [id number] ID - [id number] ID - [id number] ID - [id number] ID - [id number] ID - [id number] ID - [id number] METABOLIC [id number] 05:27:00 Test Item Value Reference Range Interpretation Comments SODIUM (BEAKER) 134 meq/L 135-148 L (test code = 381) POTASSIUM (BEAKER) 4.4 meq/L 3.6-5.5 (test code = 379) CHLORIDE (BEAKER) 102 meq/L 98-106 (test code = 382) CO2 (BEAKER) (test 22 meq/L 20-29 code = 355) BLOOD UREA NITROGEN 14 mg/dL 10-26 (BEAKER) (test code = 354) CREATININE (BEAKER) 0.77 mg/dL 0.50-1.20 (test code = 358) GLUCOSE RANDOM 215 mg/dL 70-110 H (BEAKER) (test code = 652) CALCIUM (BEAKER) 9.6 mg/dL 8.5-10.5 (test code = 697) EGFR (BEAKER) (test 102 mL/min/1.73 ESTIM ATED GFR IS code = 1092) sq m NOT ACCURATE CREATININE CLEARANCE IN PREDICTING GLOMERULAR FILTRATION RATE . ESTIMATED GFR I S NOT APPLICABLE FOR DIALYSIS PATIEN TS. Computerized Table Cutter ID - [id number] ID - [id number] ID - [id number] ID - [id number] ID - [id number] ID - [id number] ID - [id number] ID - [id number] ID - [id number] W/PLT COUNT & AUTO [id number] 05:17:00 Test Item Value Reference Range Interpretation Comments WHITE BLOOD CELL COUNT (BEAKER) 18.2 K/ L 4.0-10.0 H (test code = 775) RED BLOOD CELL COUNT (BEAKER) 4.61 M/ L 4.20-5.80 (test code = 761) HEMOGLOBIN (BEAKER) (test code = 10.0 GM/DL 13.0-16.8 L 410) HEMATOCRIT (BEAKER) (test code = 33.0 % 36.0-50.0 L 411) MEAN CORPUSCULAR VOLUME (BEAKER) 71.6 fL 82.0-99.0 L (test code = 753) MEAN CORPUSCULAR HEMOGLOBIN 21.7 pg 27.0-33.0 L (BEAKER) (test code = 751) MEAN CORPUSCULAR HEMOGLOBIN CONC 30.3 GM/DL 32.0-36.0 L (BEAKER) (test code = 752) RED CELL DISTRIBUTION WIDTH 17.5 % 12.0-15.0 H (BEAKER) (test code = 412) PLATELET COUNT (BEAKER) (test 450 K/CU MM 150-430 H code = 756) MEAN PLATELET VOLUME (BEAKER) 8.7 fL 6.0-11.5 (test code = 754) NUCLEATED RED BLOOD CELLS 0 /100 WBC 0-0 (BEAKER) (test code = 413) NEUTROPHILS RELATIVE PERCENT 70 % (BEAKER) (test code = 429) LYMPHOCYTES RELATIVE PERCENT 18 % (BEAKER) (test code = 430) MONOCYTES RELATIVE PERCENT 9 % (BEAKER) (test code = 431) EOSINOPHILS RELATIVE PERCENT 1 % (BEAKER) (test code = 432) BASOPHILS RELATIVE PERCENT 1 % (BEAKER) (test code = 437) NEUTROPHILS ABSOLUTE COUNT 12.69 K/ L 1.80-8.00 H (BEAKER) (test code = 670) LYMPHOCYTES ABSOLUTE COUNT 3.33 K/ L 1.48-4.50 (BEAKER) (test code = 414) MONOCYTES ABSOLUTE COUNT (BEAKER) 1.60 K/ L 0.00-1.30 H (test code = 415) EOSINOPHILS ABSOLUTE COUNT 0.23 K/ L 0.00-0.50 (BEAKER) (test code = 416) BASOPHILS ABSOLUTE COUNT (BEAKER) 0.11 K/ L 0.00-0.20 (test code = 417) IMMATURE GRANULOCYTES-RELATIVE 2 % 0-0 H PERCENT (BEAKER) (test code = 2801)
[2021-05-09] MEDS ORDERED: HYDROCODONE/APAP 5/325 MG TAB ONE (04:10)
[2021-05-09] MEDS ORDERED: LIDOCAINE 1% 20 ML MDV ONE (04:11)
[2021-05-09] MEDS ORDERED: TETANUS & DIPHTHERIA TOX,ADULT 0.5 ML VIAL ONE (05:55)
[2021-05-09] MEDS ORDERED: CEPHALEXIN 250 MG CAP ONE (05:57)
--- NOTE | 2021-05-09 05:59 | ER ---
Nurse's Notes [facility] Name: Miguel Gonzalez Age: 66 yrs Sex: Male : 1955 Arrival Date: 05/09/2021 Time: 03:07 Bed 8 Private MD: Diagnosis: Laceration, left hand fifth digit Presentation: 05/09 03:19 Chief complaint: Patient states: he rolled out of bed approx 30 minutes ago and hit the bb dresser with his left hand lacerating his left pinky and he is unable to get the bleeding to stop. Coronavirus screen: At this time, the client does not indicate any symptoms associated with coronavirus-19. Ebola Screen: No symptoms or risks identified at this time. Initial Sepsis Screen: Does the patient meet any 2 criteria? No. Patient's initial sepsis screen is negative. Does the patient have a suspected source of infection? No. Patient's initial sepsis screen is negative. Risk Assessment: Do you want to hurt yourself or someone else? Patient reports no desire to harm self or others. Onset of symptoms was May 09, 2021. 03:19 Method Of Arrival: Ambulatory 03:19 Acuity: MICHAEL 3 bb Triage Assessment: 06:26 Injury Description: Laceration sustained to left pinky finger is jagged. bb Historical: - Allergies: 03:21 No Known Allergies; bb - PMHx: 03:21 colon cancer; Diabetes mellitus; Hypertensive disorder; Emphysema; Hyperlipidemia; bb - PSHx: 03:21 Port-a-cath; colon surgery with appendectomy; mesenteric artery anuerysm; bb - Immunization history:: Client reports having NOT received the Covid vaccine. - Social history:: Smoking status: Patient reports the use of cigarette tobacco products, smokes one pack cigarettes per day. Patient/guardian denies using alcohol. Screenin:23 Abuse screen: Denies threats or abuse. Nutritional screening: No deficits noted. bb Tuberculosis screening: No symptoms or risk factors identified. Fall Risk None identified. Assessment: 03:23 General: Appears in no apparent distress. uncomfortable, Behavior is calm, cooperative. bb Pain: Complains of pain in left pinky finger Pain currently is 5 out of 10 on a pain scale. Neuro: Level of Consciousness is awake, alert, obeys commands, Oriented to person, place, time, situation. Cardiovascular: Capillary refill < 3 seconds Patient's skin is warm and dry. Respiratory: Airway is patent Respiratory effort is even, unlabored, Respiratory pattern is regular. GI: No signs and/or symptoms were reported involving the gastrointestinal system. Derm: Skin is pink, warm \T\ dry. Musculoskeletal: Circulation, motion, and sensation intact. laceration to right pinky finger bleeding pressure dressing applied. 04:10 Reassessment: Patient is alert, oriented x 3, equal unlabored respirations, skin bb warm/dry/pink. pressure dressing to left pinky finger clean, dry and intact. 06:23 Reassessment: Patient is alert, oriented x 3, equal unlabored respirations, skin bb warm/dry/pink. bandage to left pinky finger clean, dry and intact, pt verbalized understanding of and agrees to plan of care discharge instructions given pt ambulated with steady gait to exit accompanied by spouse. Vital Signs: 03:19 BP 143 / 92; Pulse 109; Resp 20 S; Temp 98(O); Pulse Ox 94% on R/A; Weight 111.58 kg bb (M); Height 6 ft. 4 in. (193.04 cm) (R); Pain 5/10; 06:24 BP 141 / 78; Pulse 96; Resp 20 S; Pulse Ox 95% on R/A; bb 03:19 Body Mass Index 29.94 (111.58 kg, 193.04 cm) bb ED Course: 03:07 Patient arrived in ED. ja2 03:19 Olga Zepeda, RN is Primary Nurse. bb 03:21 Triage completed. bb 03:21 Arm band placed on Patient placed in an exam room, on a stretcher, on pulse oximetry. bb Family accompanied patient. 03:23 Patient has correct armband on for positive identification. Bed in low position. Call bb light in reach. Side rails up X 1. Adult w/ patient. Pulse ox on. NIBP on. 03:30 David Dunn MD is Attending Physician. mh7 04:18 X-ray completed. Portable x-ray completed in exam room. Patient tolerated procedure mh1 well. 04:26 Hand Left 3 View XRAY In Process Unspecified. EDMS 06:24 Assist provider with laceration repair on left pinky finger that was 2.5 cm. or less bb using sutures. Set up tray. Performed by David Dunn MD Dressed with triple antibiotic applied, non-adherent dressing and covered with tube gauze. 06:26 Patient did not have IV access during this emergency room visit. 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 Exp: bb 07/04/2022. Lot #: [id number]. } Route: IM; Site: left deltoid; :22 Follow up: Response: No adverse reaction bb Outcome: 05:58 Discharge ordered by MD. berger 06:26 Discharged to home ambulatory, with family. bb 06:26 Condition: stable 06:26 Discharge instructions given to patient, family, Instructed on discharge instructions, follow up and referral plans. medication usage, wound care, Demonstrated understanding of instructions, follow-up care, medications, wound care, Prescriptions given X 1. 06:27 Patient left the ED. bb Signatures: Dispatcher Med[employer] EDMS Krysta Mathew 1 Olga Zepeda RN RN David Flaherty MD MD Tiarra Noble
--- NOTE | 2021-05-09 05:59 | EDPHYS ---
Physician Documentation [facility] Name: Miguel Gonzalez Age: 66 yrs Sex: Male : 1955 Arrival Date: 05/09/2021 Time: 03:07 Bed 8 Private MD: ED Physician David Dunn HPI: 05/09 04:16 This 66 yrs old Unknown Male presents to ER via Ambulatory with complaints of Finger mh7 Injury. 04:16 Details of fall: The patient fell from a supine position, out of bed. Onset: The mh7 symptoms/episode began/occurred today. Associated injuries: The patient sustained left hand, little finger. Severity of symptoms: At their worst the symptoms were moderate, earlier today, in the emergency department the symptoms are unchanged. States that he rolled out of bed and injured his left little finger this morning. States it has a cut that is bleeding.. Historical: - Allergies: 03:21 No Known Allergies; bb - PMHx: 03:21 colon cancer; Diabetes mellitus; Hypertensive disorder; Emphysema; Hyperlipidemia; bb - PSHx: 03:21 Port-a-cath; colon surgery with appendectomy; mesenteric artery anuerysm; bb - Immunization history:: Client reports having NOT received the Covid vaccine. - Social history:: Smoking status: Patient reports the use of cigarette tobacco products, smokes one pack cigarettes per day. Patient/guardian denies using alcohol. ROS: 04:16 Constitutional: Negative for fever, chills, and weight loss, Eyes: Negative for injury, mh7 pain, redness, and discharge, ENT: Negative for injury, pain, and discharge, Neck: Negative for injury, pain, and swelling, Cardiovascular: Negative for chest pain, palpitations, and edema, Respiratory: Negative for shortness of breath, cough, wheezing, and pleuritic chest pain, Abdomen/GI: Negative for abdominal pain, nausea, vomiting, diarrhea, and constipation, Back: Negative for injury and pain, : Negative for injury, bleeding, discharge, and swelling, Neuro: Negative for headache, weakness, numbness, tingling, and seizure, Psych: Negative for depression, anxiety, suicide ideation, homicidal ideation, and hallucinations, Allergy/Immunology: Negative for hives, rash, and allergies, Endocrine: Negative for neck swelling, polydipsia, polyuria, polyphagia, and marked weight changes, Hematologic/Lymphatic: Negative for swollen nodes, abnormal bleeding, and unusual bruising. Exam: 04:16 Constitutional: This is a well developed, well nourished patient who is awake, alert, mh7 and in no acute distress. Head/Face: Normocephalic, atraumatic. Eyes: Pupils equal round and reactive to light, extra-ocular motions intact. Lids and lashes normal. Conjunctiva and sclera are non-icteric and not injected. Cornea within normal limits. Periorbital areas with no swelling, redness, or edema. Neck: Trachea midline, no thyromegaly or masses palpated, and no cervical lymphadenopathy. Supple, full range of motion without nuchal rigidity, or vertebral point tenderness. No Meningismus. Chest/axilla: Normal chest wall appearance and motion. Nontender with no deformity. No lesions are appreciated. Cardiovascular: Regular rate and rhythm with a normal S1 and S2. No gallops, murmurs, or rubs. Normal PMI, no JVD. No pulse deficits. Respiratory: Lungs have equal breath sounds bilaterally, clear to auscultation and percussion. No rales, rhonchi or wheezes noted. No increased work of breathing, no retractions or nasal flaring. Abdomen/GI: Soft, non-tender, with normal bowel sounds. No distension or tympany. No guarding or rebound. No evidence of tenderness throughout. Back: No spinal tenderness. No costovertebral tenderness. Full range of motion. Neuro: Awake and alert, GCS 15, oriented to person, place, time, and situation. Cranial nerves II-XII grossly intact. Motor strength 5/5 in all extremities. Sensory grossly intact. Cerebellar exam normal. Normal gait. Psych: Awake, alert, with orientation to person, place and time. Behavior, mood, and affect are within normal limits. 04:16 Skin: injury, laceration(s), the wound is approximately 3.5 cm(s), with a depth of mh7 0.25 cm(s), of the left hand, little finger, that can be described as no foreign body, irregular, jagged, with mild bleeding. 04:16 Musculoskeletal/extremity: Extremities: noted in the left hand, little finger: mh7 laceration, ROM: intact in all extremities, Circulation is intact in all extremities. Sensation intact. Compartment Syndrome exam of affected extremity: is normal. no numbness, no tingling, no sensation deficit, no palor, no weak pulses, Joints: All joints appear normal with full range of motion. Weight bearing: able to fully bear weight, without difficulty, Tendon exam: specific tendon testing normal through active and passive range of motion Vital Signs: 03:19 BP 143 / 92; Pulse 109; Resp 20 S; Temp 98(O); Pulse Ox 94% on R/A; Weight 111.58 kg bb (M); Height 6 ft. 4 in. (193.04 cm) (R); Pain 5/10; 06:24 BP 141 / 78; Pulse 96; Resp 20 S; Pulse Ox 95% on R/A; bb 03:19 Body Mass Index 29.94 (111.58 kg, 193.04 cm) bb Laceration: 04:16 Wound Repair of 3.5cm ( 1.4in ) subcutaneous laceration to left hand, little finger. mh7 Irregularly shaped.. Profuse bleeding noted.. Distal neuro/vascular/tendon intact. Anesthesia: Digital block administered with 5 mls of 1% lidocaine. Wound prep: Extensive cleansing with hibiclenz by me, Wound irrigation with saline by me, Wound debrided minimally, Wound explored extensively, Copious irrigation. Skin closed with 7 4-0 Prolene using simple sutures and sterile technique. Dressed with Bacitracin, non-adherent dressing. Patient tolerated well. MDM: 05:55 Differential diagnosis: abrasion, contusion, fracture, laceration. Data reviewed: vital 7 signs, nurses notes, radiologic studies, plain films. Data interpreted: Pulse oximetry: on room air is 96 %. Interpretation: normal. Counseling: I had a detailed discussion with the patient and/or guardian regarding: the historical points, exam findings, and any diagnostic results supporting the discharge/admit diagnosis, radiology results, the need for outpatient follow up, to return to the emergency department if symptoms worsen or persist or if there are any questions or concerns that arise at home. Response to treatment: the patient's symptoms have resolved after treatment, the patient's blood pressure is in an acceptable range, mental status has returned to baseline, the patient no longer shows bradycardia, the patient is not short of breath, the patient is not tachycardic, the patient's pain is gone, the patient's temperature has normalized. 05:58 Patient medically screened. [facility] 05/09 04:04 Order name: Hand Left 3 View XRAY [facility] 05/09 04:04 Order name: Suture Tray Setup; Complete Time: 04:10 7 Administered Medications: 04:10 Drug: HYDROcodone-acetaminophen 5 mg-325 mg 2 tabs {Note: RASS 0.} Route: PO; bb 06:22 Follow up: Response: RASS: Alert and Calm (0) bb 05:41 Drug: Lidocaine (1 %) 10 ml {Note: to left pinky finger by Dr Dunn.} Volume: 5 ml; bb Route: Infiltration; 06:23 Follow up: Response: No adverse reaction bb 06:14 Drug: KeFLEX (cephalexin) 500 mg Route: PO; bb 06:22 Follow up: Response: No adverse reaction bb 06:14 Drug: Tetanus-Diphtheria Toxoid Adult 0.5 ml {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 Exp: bb 07/04/2022. Lot #: [id number]. } Route: IM; Site: left deltoid; 06:22 Follow up: Response: No adverse reaction bb Disposition Summary: 05/09/21 05:58 Discharge Ordered Location: Home [facility] Problem: new [facility] Symptoms: have improved [facility] Condition: Stable [facility] Diagnosis - Laceration, left hand fifth digit [facility] Followup: [facility] - With: Private Physician - When: 1 - 2 days - Reason: Wound Recheck, Worsening of condition, Recheck today's complaints, Continuance of care, Re-evaluation by your physician Followup: [facility] - With: Emergency Department - When: 48 Hours - Reason: Wound Recheck, Worsening of condition, Recheck today's complaints, Re-evaluation by your physician Discharge Instructions: - Discharge Summary Sheet [facility] - Laceration Care, Adult, [id number] [facility] - Sutured Wound Care, [id number] [facility] Forms: - Medication Reconciliation Form [facility] - Thank You Letter [facility] - Antibiotic Education [facility] - Prescription Opioid Use [facility] Prescriptions: - Cephalexin 500 mg Oral Capsule - take 1 capsule by ORAL route every 8 hours for 7 days; 21 capsule; Refills: 0, mh7 Product Selection Permitted Signatures: Dispatcher [employer] Olga Watt RN RN David Flaherty, MD GARCIA mh7
[2021-05-09 06:32] VITALS: TEMP 98
[2021-05-09 06:34] VITALS: BP 141/78; O2SAT 95
--- NOTE | 2021-05-09 11:20 | RAD REPORT ---
EXAM DESCRIPTION: RAD - Hand Left 3 View - 05/09/2021 4:19 am CLINICAL HISTORY: Injury COMPARISON: None. FINDINGS: 3 views of the left hand. No acute fracture or dislocation. Normal osseous mineralization. No radiopaque foreign body. IMPRESSION: 1. No acute fracture or dislocation. Electronically signed by: Bhanu Crespo 05/09/2021 4:44 AM CDT Due to temporary technical issues with the PACS/Fluency reporting system, reports are being signed by the in house radiologist without review as a courtesy to ensure prompt reporting. The interpreting r adiologist is fully responsible for the content of the report.
== END 2021-05-09 06:27 | disposition home or self-care (01) ==
LOC: ER 03:05
PROC: 0JQK0ZZ Repair Left Hand Subcutaneous Tissue and Fascia, Open Approach (ICD-10-PCS; principal; 2021-05-09)
DX: S61.217A Laceration without foreign body of left little finger without damage to nail, initial encounter (principal); W06.XXXA Fall from bed, initial encounter; Z23 Encounter for immunization; E11.9 Type 2 diabetes mellitus without complications; I10 Essential (primary) hypertension; F17.210 Nicotine dependence, cigarettes, uncomplicated
CPT/HCPCS: 90471; 90714; 99284

== ENCOUNTER 2022-06-08 13:24 | Emergency (ER) | payer OTHER ==
--- OUTSIDE RECORDS SUMMARY | 2022-06-08 13:42 | XMS REPORT | Clinical Summary ---
:1955 Author Organization [facility] MD [facility] Address [address] [place] [address] Care Team Providers Name Role Phone Unavailable Primary Care Provider Unavailable Allergies Not on File Medications Not on file Active Problems Not on file Social History Tobacco Use Types Packs/Day Years Used Date Smoking Tobacco: Never Assessed Sex Assigned at Date Recorded Not on file Job Start Date Occupation Industry Not on file Not on file Not on file Last Filed Vital Signs Not on file Plan of Treatment Not on file Results Not on fileafter 06/08/2021 Insurance Payer Benefit Plan / Subscriber ID Effective Phone Address T ype Group Dates BOTRINI MARTÍNEZ [id number] 2005-Prese [address] [employer] [facility] SIGNATURE [id number] ADMIN
--- OUTSIDE RECORDS SUMMARY | 2022-06-08 13:43 | XMS REPORT | Continuity of Care Document ---
:1955 Author Organization [facility] t Address [address] [facility] [place] [address] Care Team Providers Name Role Phone Angelita Oropeza MD Primary Care Physician Rasmes GARCIA, Jenniffer Denny Attending Clinician Julissa Carrillo MD Attending Clinician Erma Varela Attending Clinician Gricel Live MD Attending Clinician [phone] Corie Alcocer RN Attending Clinician Unavailable Sergio [facility] Attending Clinician Unavailable Adam GARCIA Nccorky Attending Clinician Nickell_K Attending Clinician Unavailable Juveanl Paniagua Attending Clinician [phone] CAMMY WARE Attending Clinician Unavailable Beau Weinstein Attending Clinician [phone] JUVENAL PANIAGUA Attending Clinician Unavailable JENNIFFER PEARCE Admitting Clinician Unavailable Nickell_K Admitting Clinician Unavailable GULSHAN ENNIS Admitting Clinician Unavailable Payers Payer Name Policy Type Policy Number Effective Date Expiration Date Jose CHESTERMAN [id number] 00:00:00 (PPO) Problems Condition Condition Condition Status Onset Resolution Last Treating Co mments Source Name Details Category Date Date Treatment Clinician Date History of History of Disease Recurre [facility] colon colon nce [facility] cancer cancer 00:00: Hospita 00 l Malignant Malignant Problem Active [facility] neoplasm Neoplasm 4-06 [facility] of lateral of Lateral 00:00: Ur ology wall of Wall of 00 urinary Urinary bladder Bladder Phimosis Phimosis Problem Active [place] [facility] [address] [facility] 00:00: Urology 00 Colon Colon Disease Active 2020-02 [facility] cancer cancer 1-[facility] 00:00: Hospita 00 l Rectal Rectal Disease Active [facility] Lesion of Lesion of Problem Active [facility] bladder Bladder 7- [facility] 00:00: Urology 00 Body mass Body Mass Problem Active [facility] index Index 8-14 [facility] 25-29 - 25-29 - 00:00: Urology overweight Overweight 00 Smoker Smoker Problem Active [facility] 8[facility]14 [facility] 00:00: Urology 00 Benign Benign Problem Active [facility] prostatic Prostatic 2-14 [facility] o hyperplasi Hyperplasi 00:00: Ur ology a with a with 00 outflow Outflow obstructio Obstructio n n Chronic Chronic Problem Active [facility] cystitis Cystitis 7-19 [facility] 00:00: Urology 00 Incomplete Incomplete Problem Active [place] emptying Emptying 7-19 [facility] of bladder of Bladder 00:00: Ur ology 00 Small Small Disease Active [facility] bowel bowel 3-25 st obstructio obstructio 00:00: Ho spita n n 00 l Allergies, Adverse Reactions, Alerts Allergy Allergy Status Severity Reaction(s) Onset Inactive Treating Comm ents Source Name Type Date Date Clinician NO KNOWN Allergy Active [facility] Social History Social Habit Start Date Stop Date Quantity Comments Source History of tobacco Smokes tobacco [facility] Alcohol intake 2022-06-06 2022-06-06 Current [facility] 00:00:00 00:00:00 non-drinker of Hospital alcohol (finding) History of Social 2022-06-06 2022-06-[address] function 00:00:00 00:00:00 Hospital Cigarettes smoked 2022-06-02 2022-06-[address] current (pack per 00:00:00 00:00:00 Hospita l day) - Reported Cigarette 2022-06-02 2022-06-02 [facility] pack-years 00:00:00 00:00:00 Hospital Tobacco use and 2022-06-02 2022-06-02 Smokeless [facility] exposure 00:00:00 00:00:00 tobacco non-user Hospital Sex Assigned At [birth year] [facility]00 [place] [facility] Smoking Status Start Date Stop Date Source Heavy Tobacco Smoker [facility] Smokes tobacco daily 2022-06-02 00:00:00 [facility] Medications Ordered Filled Start Stop Current Ordering Indication Dosage Frequency Signature Comments Components Source Medication Medication Date Date Medication? Clinician (SIG) Name Name metoprolol Yes 100mg Q.5D Take 1 [facility] tartrate 4-[address] (LOPRESSOR) 11:09: (100 mg Hos mary jane 100 mg 59 total) by l tablet mouth 2 (two) times a day. buPROPion Yes 50mg Q.5D Take 0.5 Meth shara (WELLBUTRIN 4-[address] ) 100 MG 11:09: (50 mg Hospita tablet 59 total) by l mouth 2 (two) times a day. amitriptyli Yes 25mg QD Take 1 Meth shara ne (ELAVIL) 4-24 tablet (25 st 25 MG 11:09: mg total) Hospita tablet 59 by mouth l nightly. colesevelam Yes 3.75g QD Take 3.75 [facility] 3.75 gram 4-[address] powder in 11:09: nightly. Hosp nikki packet 59 l lansoprazol Yes 30mg QD Take 1 Meth shara e 4-[address] (PREVACID) 11:09: (30 mg Hospi ta 30 MG 59 total) by l capsule mouth nightly. metFORMIN Yes 1000mg Q.5D Take 1 Meth sh[facility] (GLUCOPHAGE 4-[address] ) 1,000 mg 11:09: (1,000 mg Ho spita tablet 59 total) by l mouth 2 (two) times a day with meals. dulaglutide 2022-0 Yes Q1W every 7 Met hodi (Trulicity) 4-[address] 1.5 mg/0.5 11:09: Hospita mL 59 l subcutaneou s pen amlodipine- 2022-0 Yes 1{tbl} QD Take 1 Me thodi valsartan 4-[address] (EXFORGE) 11:09: mouth Hospita 10-320 mg 59 daily. l per tablet dapaglifloz 2022-0 Yes QD daily. Meth shara in 4-24 st (FARXIGA) 5 11:09: Hospit a mg tablet 59 l finasteride 2022-0 Yes 5mg QD Take 1 Meth [facility] (PROSCAR) 5 4-24 tablet (5 st mg tablet 11:09: mg total) Hos mayr jane 59 by mouth l daily. fenofibrate 2022-0 Yes 145mg QD Take 1 Met h[facility] (TRICOR) 4-[address] 145 MG 11:09: (145 mg Hospita tablet 59 total) by l mouth daily. tamsulosin 2022-0 Yes .4mg Take 1 Metho di (FLOMAX) 4-[address] 0.4 mg 11:09: (0.4 mg Hospita capsule 59 total) by l mouth. pioglitazon 2022-0 Yes 15mg QD Take 1 Meth shara e (ACTOS) 4-24 tablet (15 st 15 MG 11:09: mg total) Hospita tablet 59 by mouth l daily. ipratropium 2022-0 Yes 2{puff} Q4H 2 puffs [facility] -albuteroL 4-[address] (Combivent 11:09: (four) Hospi ta Respimat) 59 hours as l 20-100 needed. mcg/actuati on mist inhaler insulin 0 Yes 26U QD 26 Units [facility] GLARGINE 4-[address] (Toujeo 11:09: Hospita SoloStar 59 l U-300 Insulin) 300 unit/mL (1.5 mL) insulin pen subcutaneou s pen triamcinolo 2022- No Q.5D Apply to M ethodi ne 06-05 04-[address] (KENALOG) 08:50: 00:00 (two) Hospit a 0.1 % paste 23 :00 times a l day. sitaGLIPtin 2022- No 100mg QD Take 100 [facility] (JANUVIA) 24 04-[address] 100 MG 08:50: 00:00 mouth Hospita tablet 12 :00 daily. l triamcinolo 2021- No Q.5D Apply 1 Me thodi ne 07-[address] (KENALOG) 10:46: 00:00 n Hospita 0.1 % cream 36 :00 topically l 2 (two) times a day. terbinafine 2021- No 250mg QD Take 250 [facility] HCL 07-[address] (LamiSIL) 10:46: 00:00 mouth Hospit a 250 mg 22 :00 daily. l tablet rosuvastati 2021- No 40mg QD Take 40 mg [facility] n (CRESTOR) 07-[address] 40 MG 10:45: 00:00 nightly. Hospita tablet 57 :00 l glipiZIDE 2021- No 10mg QD Take 10 mg M ethodi (GLUCOTROL) 07-[address] 10 MG 10:45: 00:00 daily. Hospita tablet 01 :00 l ondansetron 2021-0 Yes Q8H every 8 Met hodi (ZOFRAN) 8 5-08 (eight) st MG tablet 00:00: hours as Hosp nikki 00 needed. l glipiZIDE 2021-0 Yes 5mg Q.5D Take 1 [facility] i (GLUCOTROL) 4-13 tablet (5 st 5 MG tablet 00:00: mg total) H ospita 00 by mouth 2 l (two) times a day before meals. rosuvastati 2021-0 Yes 20mg QD Take 1 Meth shara n (CRESTOR) 4-13 tablet (20 st 20 mg 00:00: mg total) Hospita tablet 00 by mouth l daily. buPROPion 2021-2021- No 150mg Q12H Take 150 Me thodi SR 4-13 06-[address] (WELLBUTRIN 00:00: 00:00 mouth Hosp nikki SR) 150 MG 00 :00 every 12 l 12 hr (twelve) tablet hours. lidocaine-p 2020-02- No Apply Meth shara rilocaine [address] (EMLA) 00:00: 05:59 as needed Hospi ta 2.5-2.5 % 00 :00 for mild l cream pain. Apply 1/2 gram to the skin over the port 1 hour prior to chemo amlodipine- Yes 1{tbl} QD Take [address] valsartan 8-09 tablet by [facility] (EXFORGE) 17:32: mouth Medical 10-320 mg 32 daily. Center per tablet buPROPion Yes 150mg Q.5D Take [address] (WELLBUTRIN 8-09 mg by [facility] SR) 150 MG 17:32: mouth 2 Medi isak 12 hr 32 (two) Center tablet times daily. fenofibrate Yes 145mg QD Take [address] (TRICOR) 8-09 mg by [facility] 145 MG 17:32: mouth Medical tablet 32 daily. Nancy glipiZIDE Yes 10mg QD Take [address] (GLUCOTROL) 8-09 by mouth Luke s 10 MG 17:32: daily . Medical tablet 32 Nancy SITagliptin Yes 100mg QD Take [address] (JANUVIA) 8-09 mg by [facility] 100 MG 17:32: mouth Medical tablet 32 daily. Nancy metFORMIN Yes 1000mg Take 1,[address] (GLUCOPHAGE 8-09 mg by [facility] ) 1000 MG 17:32: mouth 2 Medic al tablet 32 (two) Center times daily with breakfast and dinner. terbinafine Yes 250mg QD Take [address] HCL 8-09 mg by [facility] (LamiSIL) 17:32: mouth Medical 250 mg 32 daily. Center tablet pioglitazon Yes 15mg QD Take [address] e (ACTOS) 8-09 by mouth [facility] 15 MG 17:32: daily. Medical tablet 32 Center finasteride Yes 5mg QD Take [address] (PROSCAR) 5 8-09 by mouth Luke s mg tablet 17:32: daily. Medica l 32 Nancy amitriptyli Yes 50mg QD Take [address] [facility] ne (ELAVIL) 8-09 by mouth Luke s 50 MG 17:32: nightly. Medical tablet 32 Nancy lansoprazol Yes 30mg QD Take [address] [facility] e 8-09 by mouth [facility] (PREVACID) 17:32: daily. Medic al 30 MG 32 Nancy capsule rosuvastati Yes 40mg QD Take [address] n (CRESTOR) 8-09 by mouth Luke s 40 MG 17:32: nightly . Medical tablet 32 Nancy tamsulosin Yes .4mg QD Take 0.[address] (FLOMAX) 8-09 mg by [facility] 0.4 mg Cap 17:32: mouth Medica l 24 hr 32 nightly . Center capsule rosuvastati rosuvastati No rosuvastat [facility] n 40 mg n 40 mg in 40 mg [facility] tablet TAKE tablet TAKE tablet Urology 1 TABLET BY 1 TABLET BY TAKE 1 MOUTH EVERY MOUTH EVERY TABLET BY NIGHT AT NIGHT AT MOUTH BEDTIME BEDTIME EVERY NIGHT AT BEDTIME tamsulosin tamsulosin No tamsulosin [facility] 0.4 mg 0.4 mg 0.4 mg [facility] capsule capsule capsule Urolog y TAKE 1 TAKE 1 TAKE 1 CAPSULE BY CAPSULE BY CAPSULE BY MOUTH EVERY MOUTH EVERY MOUTH NIGHT AT NIGHT AT EVERY BEDTIME BEDTIME NIGHT AT BEDTIME Adriana Wright No [facility] SoloStar SoloStar SoloStar Met ro U-300 U-300 U-300 Urology Insulin 300 Insulin 300 Insulin unit/mL unit/mL 300 (1.5 mL) (1.5 mL) unit/mL subcutaneou subcutaneou (1.5 mL) s pen s pen subcutaneo INJECT 35 INJECT 35 us pen UNITS UNDER UNITS UNDER INJECT 35 THE SKIN THE SKIN UNITS EVERY DAY EVERY DAY UNDER THE SKIN EVERY DAY Trulicity Trulicity No Trulicity [facility] 1.5 mg/0.5 1.5 mg/0.5 1.5 mg/0.5 [facility] mL mL mL Urology subcutaneou subcutaneou subcutaneo s pen s pen us pen injector injector injector INJECT INJECT INJECT 1.5MG ONCE 1.5MG ONCE 1.5MG ONCE A WEEK A WEEK A WEEK amitriptyli amitriptyli No amitriptyl [facility] ne 50 mg ne 50 mg ine 50 mg Me tro tablet TAKE tablet TAKE tablet Urology 1 TABLET BY 1 TABLET BY TAKE 1 MOUTH EVERY MOUTH EVERY TABLET BY NIGHT AT NIGHT AT MOUTH BEDTIME BEDTIME EVERY NIGHT AT BEDTIME amlodipine amlodipine No amlodipine [facility] 10 10 10 [facility] mg-valsarta mg-valsarta mg-valsart Urology n 320 mg n 320 mg an 320 mg tablet TAKE tablet TAKE tablet 1 TABLET BY 1 TABLET BY TAKE 1 MOUTH DAILY MOUTH DAILY TABLET BY MOUTH DAILY aspirin aspirin No aspirin [place] n 81MG 81MG 81MG [facility] Urology bupropion bupropion No bupropion [facility] HCl SR 150 HCl SR 150 HCl SR 150 [facility] mg mg mg Urology tablet,12 tablet,12 tablet,12 hr hr hr sustained-r sustained-r sustained- elease TAKE elease TAKE release 1 TABLET BY 1 TABLET BY TAKE 1 MOUTH EVERY MOUTH EVERY TABLET BY 12 HOURS 12 HOURS MOUTH EVERY 12 HOURS colesevelam colesevelam No colesevela [facility] 3.75 gram 3.75 gram m 3.75 Met ro oral powder oral powder gram oral Urology packet TAKE packet TAKE powder CONTENTS OF CONTENTS OF packet 1 PACKET BY 1 PACKET BY TAKE MOUTH DAILY MOUTH DAILY CONTENTS OF 1 PACKET BY MOUTH DAILY Combivent Combivent No Combivent [facility] Respimat 20 Respimat 20 Respimat [facility] mcg-100 mcg-100 20 mcg-100 Uro logy mcg/actuati mcg/actuati mcg/actuat on solution on solution ion for for solution inhalation inhalation for INHALE 1 INHALE 1 inhalation PUFF BY PUFF BY INHALE 1 MOUTH EVERY MOUTH EVERY PUFF BY 6 HOURS 6 HOURS MOUTH NEEDED NEEDED EVERY 6 HOURS NEEDED Farxiga 5 Farxiga 5 No Farxiga 5 Bose mg tablet mg tablet mg tablet [facility] TAKE 1 TAKE 1 TAKE 1 Urology TABLET BY TABLET BY TABLET BY MOUTH EVERY MOUTH EVERY MOUTH DAY DAY EVERY DAY fenofibrate fenofibrate No fenofibrat [facility] nanocrystal nanocrystal e M etro lized 145 lized 145 nanocrysta Urology mg tablet mg tablet llized 145 TAKE 1 TAKE 1 mg tablet TABLET BY TABLET BY TAKE 1 MOUTH EVERY MOUTH EVERY TABLET BY DAY DAY MOUTH EVERY DAY finasteride finasteride No finasterid [facility] 5 mg tablet 5 mg tablet e 5 mg [facility] TAKE 1 TAKE 1 tablet Urology TABLET BY TABLET BY TAKE 1 MOUTH EVERY MOUTH EVERY TABLET BY DAY DAY MOUTH EVERY DAY fluconazole fluconazole No 1 Q1D fluconazol [facility] 100 mg 100 mg e 100 mg [facility] tablet Take tablet Take tablet Urology 1 tablet 1 tablet Take 1 every day every day tablet by oral by oral every day route for 7 route for 7 by oral days. days. route for 7 days. glipizide 5 glipizide 5 No glipizide Bose mg tablet mg tablet 5 mg [facility] TAKE 1 TAKE 1 tablet Urology TABLET BY TABLET BY TAKE 1 MOUTH TWICE MOUTH TWICE TABLET BY DAILY DAILY MOUTH BEFORE BEFORE TWICE MEALS MEALS DAILY BEFORE MEALS Invokana Invokana No Invokana [facility] ston 100 mg 100 mg 100 mg [facility] tablet tablet tablet Urology lansoprazol lansoprazol No lansoprazo [facility] e 30 mg e 30 mg le 30 mg [facility] capsule,del capsule,del capsule,de Urology ayed ayed layed release release release TAKE 1 TAKE 1 TAKE 1 CAPSULE BY CAPSULE BY CAPSULE BY MOUTH DAILY MOUTH DAILY MOUTH DAILY lidocaine-p lidocaine-p No lidocaine- [facility] rilocaine rilocaine prilocaine [facility] 2.5 %-2.5 % 2.5 %-2.5 % 2.5 %-2.5 Urology topical topical % topical cream APPLY cream APPLY cream 1/2 A GRAM 1/2 A GRAM APPLY 1/2 TO THE SKIN TO THE SKIN A GRAM TO OVER THE OVER THE THE SKIN PORT 1 HOUR PORT 1 HOUR OVER THE PRIOR TO PRIOR TO PORT 1 CHEMO CHEMO HOUR PRIOR TO CHEMO metformin metformin No metformin [facility] 1,000 mg 1,000 mg 1,000 mg Met ro tablet TAKE tablet TAKE tablet Urology 1 TABLET BY 1 TABLET BY TAKE 1 MOUTH TWICE MOUTH TWICE TABLET BY DAILY DAILY MOUTH TWICE DAILY metoprolol metoprolol No metoprolol [facility] tartrate tartrate tartrate Met ro 100 mg 100 mg 100 mg Urology tablet TAKE tablet TAKE tablet 1 TABLET BY 1 TABLET BY TAKE 1 MOUTH TWICE MOUTH TWICE TABLET BY DAILY DAILY MOUTH TWICE DAILY ondansetron ondansetron No ondansetro [facility] HCl 8 mg HCl 8 mg n HCl 8 mg M etro tablet tablet tablet Urology pioglitazon pioglitazon No pioglitazo [facility] e 15 mg e 15 mg ne 15 mg [facility] tablet TAKE tablet TAKE tablet Urology 1 TABLET BY 1 TABLET BY TAKE 1 MOUTH EVERY MOUTH EVERY TABLET BY DAY DAY MOUTH EVERY DAY Plenvu 140 Plenvu 140 No Plenvu 140 [facility] gram-9 gram-9 gram-9 [facility] gram-5.2 gram-5.2 gram-5.2 Uro logy gram powder gram powder gram packs USE packs USE powder DIRECTED DIRECTED packs USE DIRECTED rosuvastati rosuvastati No rosuvastat [facility] n 20 mg n 20 mg in 20 mg [facility] tablet TAKE tablet TAKE tablet Urology 1 TABLET BY 1 TABLET BY TAKE 1 MOUTH EVERY MOUTH EVERY TABLET BY DAY DAY MOUTH EVERY DAY rosuvastati rosuvastati No rosuvastat [facility] n 40 mg n 40 mg in 40 mg [facility] tablet TAKE tablet TAKE tablet Urology 1 TABLET BY 1 TABLET BY TAKE 1 MOUTH EVERY MOUTH EVERY TABLET BY NIGHT AT NIGHT AT MOUTH BEDTIME BEDTIME EVERY NIGHT AT BEDTIME tamsulosin tamsulosin No tamsulosin [facility] 0.4 mg 0.4 mg 0.4 mg [facility] capsule capsule capsule Urolog y TAKE 1 TAKE 1 TAKE 1 CAPSULE BY CAPSULE BY CAPSULE BY MOUTH EVERY MOUTH EVERY MOUTH NIGHT AT NIGHT AT EVERY BEDTIME BEDTIME NIGHT AT BEDTIME Adriana Landryumichele No [facility] SoloStar SoloStar SoloStar Met ro U-300 U-300 U-300 Urology Insulin 300 Insulin 300 Insulin unit/mL unit/mL 300 (1.5 mL) (1.5 mL) unit/mL subcutaneou subcutaneou (1.5 mL) s pen s pen subcutaneo ADMINISTER ADMINISTER us pen 35 UNITS 35 UNITS ADMINISTER UNDER THE UNDER THE 35 UNITS SKIN EVERY SKIN EVERY UNDER THE DAY DAY SKIN EVERY DAY tramadol 50 tramadol 50 No tramadol Bose mg tablet mg tablet 50 mg Metr o tablet Urology Trulicity Trulicity No Trulicity [facility] 1.5 mg/0.5 1.5 mg/0.5 1.5 mg/0.5 [facility] mL mL mL Urology subcutaneou subcutaneou subcutaneo s pen s pen us pen injector injector injector INJECT INJECT INJECT 1.5MG ONCE 1.5MG ONCE 1.5MG ONCE A WEEK A WEEK A WEEK amitriptyli amitriptyli No amitriptyl [facility] ne 50 mg ne 50 mg ine 50 mg Me tro tablet TAKE tablet TAKE tablet Urology 1 TABLET BY 1 TABLET BY TAKE 1 MOUTH EVERY MOUTH EVERY TABLET BY NIGHT AT NIGHT AT MOUTH BEDTIME BEDTIME EVERY NIGHT AT BEDTIME amlodipine amlodipine No amlodipine [facility] 10 10 10 [facility] mg-valsarta mg-valsarta mg-valsart Urology n 320 mg n 320 mg an 320 mg tablet TAKE tablet TAKE tablet 1 TABLET BY 1 TABLET BY TAKE 1 MOUTH DAILY MOUTH DAILY TABLET BY MOUTH DAILY aspirin aspirin No aspirin [place] n 81MG 81MG 81MG [facility] Urology bupropion bupropion No bupropion [facility] HCl SR 150 HCl SR 150 HCl SR 150 [facility] mg mg mg Urology tablet,12 tablet,12 tablet,12 hr hr hr sustained-r sustained-r sustained- elease TAKE elease TAKE release 1 TABLET BY 1 TABLET BY TAKE 1 MOUTH EVERY MOUTH EVERY TABLET BY 12 HOURS 12 HOURS MOUTH EVERY 12 HOURS colesevelam colesevelam No colesevela [facility] 3.75 gram 3.75 gram m 3.75 Met [facility] oral powder oral powder gram oral Urology packet TAKE packet TAKE powder 1 BY MOUTH 1 BY MOUTH packet DAILY DAILY TAKE 1 BY MOUTH DAILY Combivent Combivent No Combivent [facility] Respimat 20 Respimat 20 Respimat [facility] mcg-100 mcg-100 20 mcg-100 Uro logy mcg/actuati mcg/actuati mcg/actuat on solution on solution ion for for solution inhalation inhalation for INHALE 1 INHALE 1 inhalation PUFF BY PUFF BY INHALE 1 MOUTH EVERY MOUTH EVERY PUFF BY 6 HOURS 6 HOURS MOUTH NEEDED NEEDED EVERY 6 HOURS NEEDED Farxiga 5 Farxiga 5 No Farxiga 5 Bose mg tablet mg tablet mg tablet [facility] TAKE 1 TAKE 1 TAKE 1 Urology TABLET BY TABLET BY TABLET BY MOUTH EVERY MOUTH EVERY MOUTH DAY DAY EVERY DAY fenofibrate fenofibrate No fenofibrat [facility] 150 mg 150 mg e 150 mg [facility] capsule capsule capsule Urolog y TAKE 1 TAKE 1 TAKE 1 CAPSULE BY CAPSULE BY CAPSULE BY MOUTH EVERY MOUTH EVERY MOUTH DAY DAY EVERY DAY finasteride finasteride No finasterid [facility] 5 mg tablet 5 mg tablet e 5 mg [facility] TAKE 1 TAKE 1 tablet Urology TABLET BY TABLET BY TAKE 1 MOUTH EVERY MOUTH EVERY TABLET BY DAY DAY MOUTH EVERY DAY glipizide 5 glipizide 5 No glipizide Bose mg tablet mg tablet 5 mg [facility] TAKE 1 TAKE 1 tablet Urology TABLET BY TABLET BY TAKE 1 MOUTH TWICE MOUTH TWICE TABLET BY DAILY DAILY MOUTH BEFORE BEFORE TWICE MEALS MEALS DAILY BEFORE MEALS Invokana Invokana No Invokana Manisha ston 100 mg 100 mg 100 mg [facility] tablet tablet tablet Urology lansoprazol lansoprazol No lansoprazo [facility] e 30 mg e 30 mg le 30 mg [facility] capsule,del capsule,del capsule,de Urology ayed ayed layed release release release TAKE 1 TAKE 1 TAKE 1 CAPSULE BY CAPSULE BY CAPSULE BY MOUTH DAILY MOUTH DAILY MOUTH DAILY metformin metformin No metformin [facility] 1,000 mg 1,000 mg 1,000 mg Met ro tablet TAKE tablet TAKE tablet Urology 1 TABLET BY 1 TABLET BY TAKE 1 MOUTH TWICE MOUTH TWICE TABLET BY DAILY DAILY MOUTH TWICE DAILY metoprolol metoprolol No metoprolol [facility] tartrate tartrate tartrate Met [facility] 100 mg 100 mg 100 mg Urology tablet TAKE tablet TAKE tablet 1 TABLET BY 1 TABLET BY TAKE 1 MOUTH TWICE MOUTH TWICE TABLET BY DAILY DAILY MOUTH TWICE DAILY pioglitazon pioglitazon No pioglitazo [facility] e 15 mg e 15 mg ne 15 mg [facility] tablet TAKE tablet TAKE tablet Urology 1 TABLET BY 1 TABLET BY TAKE 1 MOUTH EVERY MOUTH EVERY TABLET BY DAY DAY MOUTH EVERY DAY Plenvu 140 Plenvu 140 No Plenvu 140 Bose gram-9 gram-9 gram-9 [facility] gram-5.2 gram-5.2 gram-5.2 Uro logy gram powder gram powder gram packs USE packs USE powder DIRECTED DIRECTED packs USE DIRECTED rosuvastati rosuvastati No rosuvastat [facility] n 40 mg n 40 mg in 40 mg [facility] tablet TAKE tablet TAKE tablet Urology 1 TABLET BY 1 TABLET BY TAKE 1 MOUTH EVERY MOUTH EVERY TABLET BY NIGHT AT NIGHT AT MOUTH BEDTIME BEDTIME EVERY NIGHT AT BEDTIME tamsulosin tamsulosin No tamsulosin [facility] 0.4 mg 0.4 mg 0.4 mg [facility] capsule capsule capsule Urolog y TAKE 1 TAKE 1 TAKE 1 CAPSULE BY CAPSULE BY CAPSULE BY MOUTH EVERY MOUTH EVERY MOUTH NIGHT AT NIGHT AT EVERY BEDTIME BEDTIME NIGHT AT BEDTIME Adriana Wright No [place] [facility] SoloStar SoloStar SoloStar [facility] U-300 U-300 U-300 Urology Insulin 300 Insulin 300 Insulin unit/mL unit/mL 300 (1.5 mL) (1.5 mL) unit/mL subcutaneou subcutaneou (1.5 mL) s pen s pen subcutaneo INJECT 35 INJECT 35 us pen UNITS UNDER UNITS UNDER INJECT 35 THE SKIN THE SKIN UNITS EVERY DAY EVERY DAY UNDER THE SKIN EVERY DAY Trulicity Trulicity No Trulicity [facility] 1.5 mg/0.5 1.5 mg/0.5 1.5 mg/0.5 [facility] mL mL mL Urology subcutaneou subcutaneou subcutaneo s pen s pen us pen injector injector injector INJECT INJECT INJECT 1.5MG ONCE 1.5MG ONCE 1.5MG ONCE A WEEK A WEEK A WEEK amitriptyli amitriptyli No amitriptyl [facility] ne 50 mg ne 50 mg ine 50 mg Me tro tablet TAKE tablet TAKE tablet Urology 1 TABLET BY 1 TABLET BY TAKE 1 MOUTH EVERY MOUTH EVERY TABLET BY NIGHT AT NIGHT AT MOUTH BEDTIME BEDTIME EVERY NIGHT AT BEDTIME amlodipine amlodipine No amlodipine [facility] 10 10 10 [facility] mg-valsarta mg-valsarta mg-valsart Urology n 320 mg n 320 mg an 320 mg tablet TAKE tablet TAKE tablet 1 TABLET BY 1 TABLET BY TAKE 1 MOUTH DAILY MOUTH DAILY TABLET BY MOUTH DAILY aspirin aspirin No aspirin [place] n 81MG 81MG 81MG [facility] Urology bupropion bupropion No bupropion [facility] HCl SR 150 HCl SR 150 HCl SR 150 [facility] mg mg mg Urology tablet,12 tablet,12 tablet,12 hr hr hr sustained-r sustained-r sustained- elease TAKE elease TAKE release 1 TABLET BY 1 TABLET BY TAKE 1 MOUTH EVERY MOUTH EVERY TABLET BY 12 HOURS 12 HOURS MOUTH EVERY 12 HOURS cefdinir cefdinir No cefdinir [facility] ston 300 mg 300 mg 300 mg [facility] capsule capsule capsule Urolog y TAKE 1 TAKE 1 TAKE 1 CAPSULE BY CAPSULE BY CAPSULE BY MOUTH EVERY MOUTH EVERY MOUTH 12 HOURS 12 HOURS EVERY 12 FOR 5 DAYS FOR 5 DAYS HOURS FOR 5 DAYS colesevelam colesevelam No colesevela [facility] 3.75 gram 3.75 gram m 3.75 Met [facility] oral powder oral powder gram oral Urology packet TAKE packet TAKE powder 1 BY MOUTH 1 BY MOUTH packet DAILY DAILY TAKE 1 BY MOUTH DAILY Combivent Combivent No Combivent Bose Respimat 20 Respimat 20 Respimat [facility] mcg-100 mcg-100 20 mcg-100 Uro logy mcg/actuati mcg/actuati mcg/actuat on solution on solution ion for for solution inhalation inhalation for INHALE 1 INHALE 1 inhalation PUFF BY PUFF BY INHALE 1 MOUTH EVERY MOUTH EVERY PUFF BY 6 HOURS 6 HOURS MOUTH NEEDED NEEDED EVERY 6 HOURS NEEDED Farxiga 5 Farxiga 5 No Farxiga 5 Bose mg tablet mg tablet mg tablet [facility] TAKE 1 TAKE 1 TAKE 1 Urology TABLET BY TABLET BY TABLET BY MOUTH EVERY MOUTH EVERY MOUTH DAY DAY EVERY DAY fenofibrate fenofibrate No fenofibrat [facility] 150 mg 150 mg e 150 mg [facility] capsule capsule capsule Urolog y TAKE 1 TAKE 1 TAKE 1 CAPSULE BY CAPSULE BY CAPSULE BY MOUTH EVERY MOUTH EVERY MOUTH DAY DAY EVERY DAY fenofibrate fenofibrate No fenofibrat [facility] nanocrystal nanocrystal e M etro lized 145 lized 145 nanocrysta Urology mg tablet mg tablet llized 145 TAKE 1 TAKE 1 mg tablet TABLET BY TABLET BY TAKE 1 MOUTH EVERY MOUTH EVERY TABLET BY DAY DAY MOUTH EVERY DAY finasteride finasteride No finasterid [facility] 5 mg tablet 5 mg tablet e 5 mg [facility] TAKE 1 TAKE 1 tablet Urology TABLET BY TABLET BY TAKE 1 MOUTH EVERY MOUTH EVERY TABLET BY DAY DAY MOUTH EVERY DAY FreeStyle FreeStyle No FreeStyle [facility] Jorge 14 Jorge 14 Jorge 14 Met ro Day Sensor Day Sensor Day Sensor Urology kit kit kit glipizide 5 glipizide 5 No glipizide Bose mg tablet mg tablet 5 mg [facility] TAKE 1 TAKE 1 tablet Urology TABLET BY TABLET BY TAKE 1 MOUTH TWICE MOUTH TWICE TABLET BY DAILY DAILY MOUTH BEFORE BEFORE TWICE MEALS MEALS DAILY BEFORE MEALS Invokana Invokana No Invokana Manisha ston 100 mg 100 mg 100 mg [facility] tablet tablet tablet Urology lansoprazol lansoprazol No lansoprazo [facility] e 30 mg e 30 mg le 30 mg [facility] capsule,del capsule,del capsule,de Urology ayed ayed layed release release release TAKE 1 TAKE 1 TAKE 1 CAPSULE BY CAPSULE BY CAPSULE BY MOUTH DAILY MOUTH DAILY MOUTH DAILY metformin metformin No metformin [facility] 1,000 mg 1,000 mg 1,000 mg Met ro tablet TAKE tablet TAKE tablet Urology 1 TABLET BY 1 TABLET BY TAKE 1 MOUTH TWICE MOUTH TWICE TABLET BY DAILY DAILY MOUTH TWICE DAILY metoprolol metoprolol No metoprolol [facility] tartrate tartrate tartrate Met ro 100 mg 100 mg 100 mg [facility] tablet TAKE tablet TAKE tablet 1 TABLET BY 1 TABLET BY TAKE 1 MOUTH TWICE MOUTH TWICE TABLET BY DAILY DAILY MOUTH TWICE DAILY pioglitazon pioglitazon No pioglitazo [facility] e 15 mg e 15 mg ne 15 mg [facility] tablet TAKE tablet TAKE tablet Urology 1 TABLET BY 1 TABLET BY TAKE 1 MOUTH EVERY MOUTH EVERY TABLET BY DAY DAY MOUTH EVERY DAY Plenvu 140 Plenvu 140 No Plenvu 140 [facility] gram-9 gram-9 gram-9 [facility] gram-5.2 gram-5.2 gram-5.2 Uro logy gram powder gram powder gram packs USE packs USE powder DIRECTED DIRECTED packs USE DIRECTED Immunizations Ordered Immunization Filled Immunization Date Status Commen Source Name Name influenza, influenza, 2014-02-12 Completed [facility] injectable, injectable, 00:00:00 Urology quadrivalent quadrivalent influenza, influenza, 2014-02-12 Completed [facility] injectable, injectable, 00:00:00 Urology quadrivalent quadrivalent influenza, influenza, 2014-02-12 Completed [facility] injectable, injectable, 00:00:00 Urology quadrivalent quadrivalent Vital Signs Vital Name Observation Time Observation Value Comments Source BP Diastolic 2021-05-18 00:00:00 64 mm[Hg] [facility] Urology Height 2021-05-18 00:00:00 76 [in_i] [facility] Urolog BMI (Body Mass 2021-05-18 00:00:00 29.5 kg/m2 [facility] mario [facility] Index) Urology BP Systolic 2021-05-18 00:00:00 138 mm[Hg] [facility] Body Weight 2021-05-18 00:00:00 242 [lb_av] [facility] Urolog HEIGHT 2020-09-12 12:25:00 188 cm WEIGHT 2020-09-12 12:25:00 111.131 kg HEIGHT 2020-09-12 03:07:00 188 cm WEIGHT 2020-09-12 03:07:00 111.131 kg HEIGHT 2020-09-12 12:25:00 188 cm WEIGHT 2020-09-12 12:25:00 111.131 kg HEIGHT 2020-09-12 03:07:00 188 cm WEIGHT 2020-09-12 03:07:00 111.131 kg BP Diastolic 2020-08-23 00:00:00 80 mm[Hg] [facility] Urology Height 2020-08-23 00:00:00 76 [in_i] [facility] Urology BMI (Body Mass 2020-08-23 00:00:00 30.4 kg/m2 [place] Index) Urology BP Systolic 2020-08-23 00:00:00 120 mm[Hg] [facility] Urology Body Weight 2020-08-23 00:00:00 250 [lb_av] [facility] Urology BP Diastolic 2020-08-12 00:00:00 66 mm[Hg] [facility] Urology Height 2020-08-12 00:00:00 76 [in_i] [facility] Urology BMI (Body Mass 2020-08-12 00:00:00 30.4 kg/m2 [place] Index) Urology BP Systolic 2020-08-12 00:00:00 128 mm[Hg] [facility] Urology Body Weight 2020-08-12 00:00:00 250 [lb_av] [facility] Urology Systolic blood 2022-06-05 15:54:00 103 mm[Hg] [facility] pressure Diastolic blood 2022-06-05 15:54:00 56 mm[Hg] [facility] pressure Heart rate 2022-06-05 15:54:00 81 /min [facility] Respiratory rate 2022-06-05 15:54:00 20 /min [facility] Oxygen saturation in 2022-06-05 15:54:00 92 /min [facility] Arterial blood by Pulse oximetry Body temperature 2022-06-05 15:25:00 37 Bel [facility] Body height 2022-06-05 13:51:00 193 cm [facility] Body weight 2022-06-05 13:51:00 111.585 kg [facility] BMI 2022-06-05 13:51:00 29.94 kg/m2 [facility] Procedures Procedure Date / Time Performing Clinician Source Performed SURGICAL PATHOLOGY 2022-06-05 17:47:00 Jenniffer Pearce [facility] REQUEST COLONOSCOPY 2022-06-05 14:46:00 Jenniffer Pearce spital POC GLUCOSE 2022-06-05 14:05:00 [facility] QUALITATIVE 2022-06-02 13:18:00 [facility] RT-PCR COMPREHENSIVE METABOLIC 2021-08-03 14:00:00 [facility] PAN[facility] [place] CBC WITH PLATELET AND 2021-08-03 14:00[facility] [place] MAGNESIUM LEVEL 2021-08-03 14:00:00 Gricel Live spital [place] ESTIMATED GFR 2021-08-03 14:00:00 [facility] [place] ABSOLUTE NEUTROPHIL 2021-08-03 14:00:00 Mayi Liverge [facility] COUNT [place] COMPREHENSIVE METABOLIC 2021-07-20 14:24:00 Mayi Liverge [facility] PANEL [place] CBC WITH PLATELET AND 2021-07-20 14:24:00 [facility] DIFFERENTIAL [place] MAGNESIUM LEVEL 2021-07-20 14:24:00 Gricel Live spital [place] ESTIMATED GFR 2021-07-20 14:24:00 [facility] [place] ABSOLUTE NEUTROPHIL 2021-07-20 14:24:00 [facility] COUNT [place] TTE COMPLETE, WO 2021-06-28 16:28:00 Ashley Collier ospital CONTRAST, W DOPPLER ([id number]) CT ANGIOGRAM ABDOMEN 2021-06-21 19:16:36 Gricel Live [facility] PELVIS W AND OR WO [place] CONTRAST PET CT SKULL BASE TO MID 2021-06-10 20:42:33 Ashley Collier [facility] THIGH POC GLUCOSE 2021-06-10 18:38:00 Adam, [facility] Colonoscopy 2020-02-13 00:00:00 Juice Carrillor o Urology Colonoscopy 2013-02-12 00:00:00 [facility] r o Urology Plan of Care Planned Activity Planned Date Details Comments Source Future Scheduled 2022-10-[address] [facility] Test 00:00:00 (Season Ended) [code = Medic al Center INFLUENZA VACCINE (Season Ended)] Future Scheduled 2022-06-06 COVID-19 VACCINE (#1) [facility] Test 13:21:50 [code = COVID-19 VACCINE (#1)] Future Scheduled 2022-06-06 65[facility] Test 13:21:50 VACCINE (1 - PCV) [code = 65+ PNEUMOCOCCAL VACCINE (1 - PCV)] Future Scheduled 2022-06-06 Hepatitis C screening [facility] Test 13:21:50 (procedure) [code = 133063977] Future Scheduled 2022-06-06 COLONOSCOPY SCREENING [facility] Test 13:21:50 [code = COLONOSCOPY SCREENING] Future Scheduled 2022-06-06 [facility] Test 13:21:50 malignant neoplasm of lung (procedure) [code = 568750370] Future Scheduled 2022-06-06 [facility]INGLES [facility]IN[facility] ([facility] 13:21:50 of 2) [code = SHINGLES VACCINES (1 of 2)] Future Scheduled 2022-06-06 [facility]INE [facility] 13:21:50 [code = INFLUENZA VACCINE] Future Scheduled 2022-02-[address] [facility] Test 00:00:00 (12+) [code = Medical Center DEPRESSION SCREENING (12+)] Future Scheduled 2022-02-12 FALLS RISK SCREENING [facility] Test 00:00:00 [code = FALLS RISK Medical C enter SCREENING] Future Scheduled 2021-09-[address] [facility] Test 00[facility]00:00 malignant neoplasm of Medica l Center colon (procedure) [code = 433836172] Future Scheduled 2021-09-[address] [facility] Test 00:00:00 malignant neoplasm of Medica l Center colon (procedure) [code = 111318596] Diagnostic Test 2021-05-18 urinalysis, dipstick [place] [facility] Pending 00:00:00 [code = urinalysis, Urology dipstick] Diagnostic Test 2021-05-18 culture, urine [code = [place] [facility] Pending 00:00:00 culture, urine] Urology Diagnostic Test 2021-05-18 cytology, urine [code Manisha monte [facility] Pending 00:00:00 = cytology, urine] Urology Future Scheduled 2021-03-[address] [facility] Test 00:[facility]:00 measurement Medical Center (procedure) [code = 33057804] Future Scheduled 2007 SHINGLES VACCINES ([address] [facility] Test 00:00:00 of 2) [code = SHINGLES Medic al Center VACCINES (1 of 2)] Future Scheduled [address] [facility] Test 00:00:00 (procedure) [code = Medical Center 30096157] Future Scheduled 1976 DTAP/TDAP/TD VACCINES [facility] Test 00:00:00 (1 - Tdap) [code = Medical C enter DTAP/TDAP/TD VACCINES (1 - Tdap)] Future Scheduled 1975 HEPATITIS C SCREENING [facility] Test 00:00:00 [code = HEPATITIS C Medical Center SCREENING] Future Scheduled [address] [facility] Test 00:00:00 Counseling and Medical Cente r Screening (12+) [code = Tobacco Cessation Counseling and Screening (12+)] Future Scheduled 1967 DIABETIC EYE EXAM [facility] Test 00:00:00 [code = DIABETIC EYE Medical Center EXAM] Future Scheduled 1967 Urine screening for [facility] Test 00:00:00 protein (procedure) Medical Center [code = 944131615] Future Scheduled 1963 PNEUMOCOCCAL 65+ Y[address] [facility] Test 00:00:00 (1 - PCV) [code = Medical Ce nter PNEUMOCOCCAL 65+ YRS (1 - PCV)] Future Scheduled 1957 COVID-19 VACCINE (#1) [facility] Test 00:00:00 [code = COVID-[address] VACCINE (#1)] Future Scheduled 1957 Sigmoidoscopy [code = [facility] Test 00:00[facility]00 Sigmoidoscopy] Medical Cente r Future Scheduled [address] [facility] Test 00:00:00 (combo) [code = CT Medical C enter Colonography (combo)] Future Scheduled [address] [facility] Test 00:00:00 malignant neoplasm of Medica l Center colon (procedure) [code = 488928354] Future Scheduled [address] [facility] Test 00:00:00 malignant neoplasm of Medica l Center colon (procedure) [code = 918187334] Encounters Start End Encounter Admission Attending Care Care Encounter Source Date/Time Date/Time Type Type Clinicians Facility Department ID 2022-06-05 2022-06-05 [facility], 1.2.840.1 [id number] Methodi 08:06:00 11:09:00 Encounter Jenniffer Denny 46501.1.1 683 s t 3.430.2.7 Hospit a .3.358657 l .8 2022-06-05 2022-06-05 Anesthesia GerardoJulissa A. 1.2.840.1 [id number] Methodi 09:51:00 10:26:00 Event Erma Lopez 37269.1.[address] 3.430.2.7 Hospit a .3.876444 l .8 2022-06-05 2022-06-05 Surgery [facility], 1.2.840.1 [id number] Methodi 09:15:00 09:50:[address]37.[address] 3.430.2.7 Hospit a .3.723570 l .8 2022-06-05 2022-06-05 [facility] 004 [id number] [facility] 00:00:00 00:00:[address] 2022-06-02 2022-06-02 Pre-Admiss Ramses, 1.2.840.1 [id number] Methodi 08:30:00 08:45:00 ion Jenniffer Denny 40223.1.[address] Testing 3.430.2.7 Hospit a .3.173256 l .8 2022-06-02 2022-06-02 Travel 1.2.840.1 1.2.645.040 2633 [id number] Methodi 00:00:00 00:00:[address] 3.430.2.7 0.2.7.3.698 Ho spita .3.478794 084.8 l .8 2022-06-02 2022-06-02 Outpatient [facility] [id number] [place] 00:00:00 00:00:00 JENNIFFER [address] 2021-11-14 2021-11-14 Travel 1.2.840.1 1.2.129.311 9921 [id number] Methodi 00:00:00 00:00:[address] 3.430.2.7 0.2.7.3.698 Ho spita .3.103113 084.8 l .8 2021-11-14 2021-11-14 Transcribe Mame, 1.2.840.1 [id number] 2 [id number] Methodi 00:00:00 00:00:00 Orders Gricel 42573.1.[address] [place] 3.430.2.7 Hospit a .3.741064 l .8 2021-09-15 2021-09-15 Oncology Rush, 1.2.840.1 [id number] [id number] Methodi 00:00:00 00:00:00 [facility] Corie 89453.1.1 101 s t ip 3.430.2.7 Hospit a .3.479914 l .8 2021-08-05 2021-08-05 Nurse Only Mame, 1.2.840.1 [id number] 2 [id number] Methodi 13:15:00 13:45:[address] [place] 3.430.2.7 Hospit a .3.409946 l .8 2021-08-05 2021-08-05 Travel 1.2.840.1 1.2.849.708 3733 [id number] Methodi 00:00:00 00:00:[address] 3.430.2.7 0.2.7.3.698 Ho spita .3.907401 084.8 l .8 2021-08-05 2021-08-05 Outpatient [facility], [facility] [id number] [facility] 00:00:00 00:00:00 GRICEL [address] 2021-08-03 2021-08-03 Infusion Darcourt, 1.2.840.1 [id number] [id number] Methodi 09:00:00 12:00:[address] [place] 3.430.2.7 Hospit a .3.388155 l .8 2021-08-03 2021-08-03 Travel 1.2.840.1 1.2.851.869 4604 [id number] Methodi 00:00:00 00:00:[address] 3.430.2.7 0.2.7.3.698 Ho spita .3.231290 084.8 l .8 2021-08-03 2021-08-03 Outpatient [facility] [id number] [place] 00:00:00 00:00:00 GRICEL [address] 2021-08-01 2021-08-01 Orders Darcourt, 1.2.840.1 [id number] Methodi 00:00:00 00:00:00 Only Gricel 72312.1.[address] [place] 3.430.2.7 Hospit a .3.488322 l .8 2021-07-22 2021-07-22 Nurse Only Darcourt, 1.2.840.1 [id number] 2 [id number] Methodi 13:15:00 13:45:[address] [place] 3.430.2.7 Hospit a .3.614660 l .8 2021-07-22 2021-07-22 Travel 1.2.840.1 1.2.936.362 7755 [id number] Methodi 00:00:00 00:00:[address] 3.430.2.7 0.2.7.3.698 Ho spita .3.160262 084.8 l .8 2021-07-22 2021-07-22 Outpatient [facility] [id number] [place] 00:00:00 00:00:00 GRICEL [address] 2021-07-20 2021-07-20 Infusion Darcourt, 1.2.840.1 [id number] Methodi 09:30:00 15:45:[address] [place] 3.430.2.7 Hospit a .3.300170 l .8 2021-07-20 2021-07-20 Oncology Rush, 1.2.840.1 [id number] [id number] Methodi 00:00:00 00:00:00 [facility] Corie 52851.1.1 654 s t ip 3.430.2.7 Hospit a .3.069294 l .8 2021-07-20 2021-07-20 Travel 1.2.840.1 1.2.304.685 1352 [id number] [facility]i 00:00:00 00:00:[address] 3.430.2.7 0.2.7.3.698 Ho spita .3.053128 084.8 l .8 2021-07-20 2021-07-20 Outpatient [facility] [id number] [place] 00:00:00 00:00:00 GRICEL [address] 2021-07-12 2021-07-12 Orders Darcourt, 1.2.840.1 [id number] Methodi 00:00:00 00:00:00 Only Gricel 78513.1.[address] [place] 3.430.2.7 Hospit a .3.259538 l .8 2021-07-12 2021-07-12 Orders Hill, 1.2.840.1 [id number] Methodi 00:00:00 00:00:00 Only Cammy Young 56961.1.[address] 3.430.2.7 Hospit a .3.618486 l .8 2021-06-28 2021-06-28 [facility], 1.2.840.1 [id number] Methodi 10:30:35 23:59:00 Encounter Uttaraul 77175.1.[address] 3.430.2.7 Hospit a .3.759937 l .8 2021-06-28 2021-06-28 Travel 1.2.840.1 1.2.131.393 8881 [id number] [facility]i 00:00:00 00:00:[address] 3.430.2.7 0.2.7.3.698 Ho spita .3.640949 084.8 l .8 2021-06-28 2021-06-28 Outpatient [facility] [id number] [place] 00:00:00 00:00:[address]TTAM [address] 2021-06-21 2021-06-21 [facility], 1.2.840.1 [id number] Methodi 13:35:12 23:59:00 Encounter Gricel 26011.1.[address] [place] 3.430.2.7 Hospit a .3.734380 l .8 2021-06-21 2021-06-21 Travel 1.2.840.1 1.2.443.513 8468 [id number] [facility]i 00:00:00 00:00:[address] 3.430.2.7 0.2.7.3.698 Ho spita .3.340688 084.8 l .8 2021-06-21 2021-06-21 Outpatient [facility] [id number] [place] 00:00:00 00:00:[address] GRICEL [address] 2021-06-11 2021-06-11 Transcribe [facility], 1.2.840.1 [id number] 2 [id number] [facility]i 00:00:00 00:00:00 Orders Uttam 21493.1.[address] 3.430.2.7 Hospit a .3.565711 l .8 2021-06-10 2021-06-10 Hospital Adam, 1.2.840.1 [id number] [id number] [facility]i 13:23:25 23:59:00 Encounter Uttam 84091.1.[address] 3.430.2.7 Hospit a .3.583054 l .8 2021-06-10 2021-06-10 Travel 1.2.840.1 1.2.899.553 0689 [id number] [facility]i 00:00:00 00:00:[address] 3.430.2.7 0.2.7.3.698 Ho spita .3.904689 084.8 l .8 2021-06-10 2021-06-10 Orders Adam, 1.2.840.1 [id number] 2099 [id number] [facility]i 00:00:00 00:00:00 Only Uttam 99687.1.[address] 3.430.2.7 Hospit a .3.869264 l .8 2021-06-10 2021-06-10 Outpatient ADAM, [facility] [id number] [place] 00:00:00 00:00:00 UTTAM [address] 2021-06-09 2021-06-09 Orders Adam, 1.2.840.1 [id number] [id number] [facility]i 00:00:00 00:00:00 Only Uttam 49744.1.[address] 3.430.2.7 Hospit a .3.253761 l .8 2021-06-07 2021-06-07 Outpatient ADAM, [facility] [id number] [place] 00:00:00 00:00:00 UTTAM [address] 2021-06-02 2021-06-02 Outpatient DARCOURT, [facility] [id number] [facility] 00:00:00 00:00:00 GRICEL [address] 2021-05-31 2021-05-31 Outpatient DARCOURT, [facility] [id number] [place] 00:00:00 00:00:00 GRICEL [address] 2021-05-19 2021-05-19 Outpatient Nickell_K [facility] [id number] [place] 12:33:00 12:33:00 [id number] [facility] 2021-05-19 2021-05-19 Outpatient PARESHCOURT, [facility] 00:00:00 00:00:00 GRICEL 248 Method i 2021-05-18 2021-05-18 Outpatient Nickell_K [facility] [id number] [facility] 10:10:00 10:10:00 [id number] [facility] 2021-05-18 2021-05-18 Juvenal Live [facility] [place] - [id number] [place] 00:00:00 00:00:00 Arcelia [facility] Adryan MD: [id number] [facility] Urolog y [facility] Urology [facility] [address], [place] [address] , Ph. 2021-05-18 2021-05-18 Outpatient Arcelia, [facility] [id number]-[id number] 00:00:00 00:00:00 Juvenal Live [id number] 4563-04-05 2021-05-17 Outpatient MAME, [facility] 00:00:00 00:00:00 GRICEL 147 Method i 2021-05-16 2021-05-16 Outpatient Nickell_K [facility] [id number] [place] 09:50:00 09:50:00 75807 [facility] 2021-05-05 2021-05-05 Outpatient PARESHCOELVIE, [facility] 00:00:00 00:00:00 GRICEL [address] 2021-05-03 2021-05-03 Outpatient MAME, [facility] 00:00:00 00:00:00 GRICEL [address] 2021-04-26 2021-04-26 Outpatient PARESHCOURT, [facility] [place] 00:00:00 00:00:00 GRICEL 183 Method i 2021-04-21 2021-04-21 Outpatient Nickell_K [place] [id number] [place] 03:17:00 03:17:00 [id number] [facility] 2021-04-21 2021-04-21 Outpatient DARCOURT, [facility] [id number] [place] 00:00:00 00:00:00 GRICEL 861 Method i 2021-04-19 2021-04-19 Outpatient DARCOURT, [facility] [id number] [place] 00:00:00 00:00:00 GRICEL 776 Method i 2021-04-18 2021-04-18 Outpatient DARCOURT, [facility] [id number] [place] 00:00:00 00:00:00 GRICEL 055 Method i 2021-04-07 2021-04-07 Outpatient DARCOURT, [facility] [id number] [place] 00:00:00 00:00:00 GRICEL 903 Method i 2021-04-05 2021-04-05 Outpatient DARCOURT, [facility] [id number] [place] 00:00:00 00:00:00 GRICEL 849 Method i 2021-04-04 2021-04-04 Outpatient DARCOURT, [facility] [id number] [place] 00:00:00 00:00:00 GRICEL 851 Method i 2021-03-24 2021-03-24 Outpatient DARCOURT, [facility] [id number] [place] 00:00:00 00:00:00 GRICEL 240 Method i 2021-03-22 2021-03-22 Outpatient DARCOURT, [facility] [id number] [place] 00:00:00 00:00:00 GRICEL 185 Method i 2021-03-21 2021-03-21 Outpatient DARCOURT, [facility] [id number] [place] 00:00:00 00:00:00 GRICEL 876 Method i 2021-03-10 2021-03-10 Outpatient DARCOURT, [facility] [id number] [place] 00:00:00 00:00:00 GRICEL 353 Method i 2021-03-082021-03-08 Outpatient DARCOURT, [facility] [id number] [place] 00:00:00 00:00:00 GRICEL [address] 2021-03-04 2021-03-04 Outpatient DARCOURT, [facility] [id number] [place] 00:00:00 00:00:00 GRICEL [address] 2021-02-24 2021-02-24 Outpatient DARCOURT, [facility] [id number] [place] 00:00:00 00:00:00 GRICEL [address] 2021-02-22 2021-02-22 Outpatient DARCOURT, H [facility] [id number] [place] 00:00:00 00:00:00 GRICEL [address] 2021-02-21 2021-02-21 Outpatient DARCOURT, [facility] [id number] [place] 00:00:00 00:00:00 GRICEL [address] 2021-02-16 2021-02-16 Outpatient DARCOURT, H [facility] [id number] [place] 00:00:00 00:00:00 GRICEL [address] 2021-02-09 2021-02-09 Outpatient DARCOURT, H [facility] [id number] [place] 00:00:00 00:00:00 GRICEL [address] 2021-02-07 2021-02-07 Outpatient DARCOURT, [facility] [id number] [place] 00:00:00 00:00:00 GRICEL [address] 2021-01-27 2021-01-27 Outpatient DARCOURT, [facility] H [id number] [place] 00:00:00 00:00:00 GRICEL [address] 2021-01-25 2021-01-25 Outpatient DARCOURT, H [facility] [id number] [place] 00:00:00 00:00:00 GRICEL [address] 2021-01-24 2021-01-24 Outpatient DARCOURT, [facility] [id number] [place] 00:00:00 00:00:00 GRICEL [address] 2021-01-14 2021-01-14 Outpatient DARCOURT, [facility] [id number] [place] 00:00:00 00:00:[address]ICEL [address] 2021-01-12 2021-01-12 Outpatient MAME [facility] [id number] [place] 00:00:00 00:00:00 GRICEL [address] 2021-01-05 2021-01-05 Outpatient MAME [facility] [id number] [place] 00:00:00 00:00:00 GRICEL [address] 2020-12-29 2020-12-29 Outpatient MAME [facility] [id number] [place] 00:00:00 00:00:00 GRICEL [address] 2020-11-26 2020-11-26 Outpatient Nickell_K [facility] [id number] [place] 01:03:00 01:03:00 [id number] [facility] 2020-10-21 2020-10-21 Outpatient Nickell_K [facility] [id number] [place] 02:00:00 02:00:00 [id number] [facility] 2020-09-16 2020-09-16 Outpatient Nickell_K [facility] [id number] [place] 01:21:00 01:21:00 [id number] [facility] 2020-09-12 2020-09-12 Emergency ER [facility] [id number] [facility] 02:33:00 02:33:00 2020-08-24 2020-08-24 Outpatient Nickell_K [facility] [id number] [place] 11:49:00 11:49:00 [id number] [facility] 2020-08-23 2020-08-23 Outpatient Nickell_K [facility] [id number] [place] 12:11:00 12:11:00 [id number] [facility] 2020-08-23 2020-08-23 Outpatient FER Weinstein Tucker af2b [id number] 00:00:00 00:00:00 Beau [id number] Pawel [id number] 2020-08-23 2020-08-23 Beau Tucker [place] - [id number] Leodan fermin 00:00:00 00:00:00 Adryan Piedra MD: [id number] [id number], [place] [address] , Ph. 2020-08-20 2020-08-20 [place] [facility] [place] [id number] [place] 04:17:00 04:17:00 [id number] [facility] 2020-08-18 2020-08-19 Outpatient ARCELIA, [facility] [address] [facility] 18:15:00 10:45:00 JUVENAL 2020-08-13 2020-08-13 Outpatient [place] [facility] [place] [id number] [place] 10:29:00 10:29:00 [id number] [facility] 2020-08-12 2020-08-12 Outpatient [facility] [place] [id number] [place] 03:11:00 03:11:00 [id number] [facility] 2020-08-12 2020-08-12 Outpatient Arcelia, [facility] [place] [id number] 00:00:00 00:00:00 Juvenal Calos [id number] 2020-08-12 2020-08-12 Juvenal Live [facility] [place] [id number] [place] 00:00:00 00:00:00 Juice Paniagua MD: [id number] [facility] [address] [address], [place] [address] , Ph. 2020-08-03 2020-08-03 Outpatient [facility]ell[facility] [place] [id number] [place] 10:17:00 10:17:00 [id number] [facility] 2020-07-29 2020-07-29 Outpatient FIMAN, [facility] [id number] [place] 00:00:00 00:00:00 JENNIFFER Garcia Method i st Results Test Description Test Time Test Comments Results Result Comments Source Surgical pathology request 2022-06-07 21:18:55 Test Item Value Reference Range Interpretation Comme nts Case number (test code = 8547416) [id number] Surgical pathology report (test code = See link below for PDF Lab R eport 8514) Result status (test code = 1528491) This is Final Report for [id number] 1714-3 [facility] [id number] 14:07:00 Test Item Value Reference Range Interpretation Comments POC glucose (test code 244 mg/dL 65-99 H Opera nazario Name: Logan = [id number]) Marly ID: [id number] able: RN Notified Lab Interpretation Abnormal (test code = 27811-9) [facility] [Presence] in Respiratory specimen by STEVE with probe [id number] 15:31:54 Test Item Value Reference Range Interpretation Comments SARS-CoV-2 (COVID-19) RNA Not detected [Presence] in Respiratory specimen by STEVE with probe detection (test code = 05799-0) Whether 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 in a Unknown 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 (test code = 85414-2) Whether the patient has symptoms Unknown related to condition of interest (test code = 79080-2) Whether the patient was Unknown hospitalized for condition of interest (test code = 09359-1) Whether the patient was admitted Unknown to intensive care unit (ICU) for condition of interest (test code = 73209-0) Whether patient resides in a Unknown congregate care setting (test code = 25246-0) status (test code = Unknown 93410-7) Date and time of symptom onset Unknown (test code = 98729-4) [facility], (w Contrast, Strain and 3D if needed)2021-06-28 19:29:35 Test Item Value Reference Range Interpretation Comments Ao Root Diameter (test 3.61 cm code = 3905840592) AoV Area, Vmax (test 3.49 cm2 code = 9369728196) AoV Area, VTI (test 3.32 cm2 code = 9968048321) AoV Mean PG (test code 3.30 mmHg = 7112166809) AoV Peak PG (test code 6.31 mmHg = 6792888616) AoV Vmax (test code = 1.35 m/s 6995412079) AoV VTI (test code = 0.27 m 5545447766) IVS,d (test code = 1.27 cm 0.6-1.0 A 1013788471) IVS/LVPW,2D (test code 0.85 = 0594851203) Left Atrium Dimension 3.56 cm Anterior (test code = 9274771907) LV,d (test code = 4.98 cm 5880080454) LV EF,2D (test code = 68.12 % 9832814697) LV,s (test code = 3.40 cm 1365126684) LVOT area (test code = 3.94 cm2 9220340404) LVOT Diam,S (test code 2.24 cm = 5692143884) LVOT Vmax (test code = 1.11 m/s 9641523757) LVOT VTI (test code = 0.23 m 6399290697) LVPWD,d (test code = 1.50 cm 0.6-1.0 A 5365765365) PV Mean Grad (test code 2.96 mmHg = 8762118905) PV Pk Grad (test code = 6.09 mmHg 5820143606) PV VMAX (test code = 1.23 m/s 9859602425) PV VTI (test code = 0.29 m 8256964148) RVOT Vmax (test code = 0.93 m/s 4901674601) RVSP (TR) (test code = 26.54 mmHg 3558295163) TR Vpeak (test code = 2.36 m/s 9907007642) MV E A ratio (test code 1.03 = 8053602147) RA pressure (test code 10.00 mmHg = 0343263383) TR pk grad (test code = 16.54 mmHg 4504548924) PV Vmn (test code = 0.82 8502287445) MR Vmax (test code = 2.76 m/s 0230502029) E wave decelartion time 225.95 msec (test code = 9401729232) MV Peak A Jack (test 0.68 m/s code = 6049805722) MV valve area p 1/2 3.36 cm2 method (test code = 2280911572) MV Peak E Jack (test 0.69 m/s code = 2261255904) MV stenosis pressure 65.53 ms 1/2 time (test code = 5515681445) LVOT stroke volume 0.91 ml (test code = 0225246331) AV LVOT peak gradient 4.89 mmHg (test code = 1497695651) RVSP (test code = 26.54 mmHg 4603118993) Ao Root Diameter (test 3.61 cm code = 5828582360) MV mean gradient (test 0.92 mmHg code = 2815027433) LV SYS VOL (test code = 47.46 ml 21-61 1512809442) LV DENNISON VOL (test code 117.03 ml 62-150 = 6579636317) LA area s A4C (test 15.28 cm2 code = 0546163507) LV SV Teich 2D (test 69.57 ml code = 1342317015) LV Vol s Teich PSAX 47.46 ml (test code = 5849852486) MR peak grad (test code 2.80 mmHg = 6800968796) MV Vmax (test code = 0.84 m 5213256608) MV VTI Tips (test code 0.28 m = 7504707069) RVOT pk grad (test code 3.44 mmHg = 8921357851) AoV Vmn (test code = 0.85 m/s 4027130438) LV FS Teich 2D (test 31.68 code = 4880812958) MV AE ratio (test code 0.97 = 6527173335) LV FS Cube 2D (test 31.68 code = 1677072550) LVOT Vmn (test code = 0.73 8361064611) Aov area Vmn (test code 3.42 cm2 = 8401793924) LVOT mean grad (test 2.53 mmHg code = 0290476401) MAX Pred HR (test code 155.78 = 2251575465) 85 of MPHR (test code = 132.41 8555130365) Calc MPHR (test code = 155.78 bpm 6347902160) LV SV Cube 2D (test 84.02 ml code = 2232738648) LV vol d cube 2D (test 123.34 ml code = 2484137769) LV vol s cube 2D (test 39.33 ml code = 3424735950) MV Decel slope (test 3.07 m/s2 code = 5791259655) Pred Exer Dur R1 (test 8.06 code = 5292611249) Pred METS R1 (test code 8.37 = 8224187334) LA Vol MOD A4C (test 36.21 ml code = 6892867919) E morris sept (test code 0.11 = 6231713159) E prime lat (test code 0.11 = 3823924753) Velocity Ratio (V1/V2) 0.82 m/s (test code = 4689) EF (test code = 59 % 0307665321) E/A ratio (test code = 1.01 9971386812) LVOT VTI (CM) (test 23.00 cm code = 6400774461) RITESH (test code = RITESH) Left Ventricle: Normal wall motion. Normal systolic function with a visually estimated EF of 55 - 60%. Grade I (impaired relaxation) diastolic dysfunction. Right Ventricle: Right ventricle size is normal. Normal systolic function. Aortic Valve: Mild valvular regurgitation with a centrally directed jet. Mitral Valve: Trace valvular regurgitation. Tricuspid Valve: Trace valvular regurgitation. Left VentricleLeft ventricle size is normal. Normal wall thickness. Normal wall motion. Normal systolic function with a visually estimated EF of 55 - 60%. Grade I (impaired relaxation) diastolic dysfunction.Right VentricleRight ventricle size is normal. Normal systolic function.Left AtriumLeft atrium size is normal.Right AtriumRight atrium size is normal.Mitral ValveValve structure is normal. Trace valvular regurgitation.Tricuspi d ValveValve structure is normal. Trace valvular regurgitation.Aortic ValveValve structure is normal. Mild valvular regurgitation with a centrally directed jet.Pulmonic ValveValve structure is normal.PericardiumNo significant pericardial effusion.Study DetailsStudy quality was good. A complete echocardiogram was performed. Lab Interpretation Abnormal (test code = 88700-0) [facility] [id number] 14:09:00Surgical Pathology Report Case: [id number] Authorizing Provider: Magan Kulkarni, Collected: 09/15/2020 02:34 PM Ordering Location: [address] Med/Surg Received: 09/17/2020 07:49 AM Pathologist: Corinne Godinez MD Specimen: Large Intestine, Colon - Right/Ascending, right colon This addendum is to report BRAF Results (performed at [facility]). For full report, please see scanned document below. BRAF MUTATION: DETECTEDMUTATION: c.1799T>A (p.V600E)Addendum electronically signed by Corinne Godinez MD on 10/04/2020 at 2:08 PMThis addendum is to report MMRresults. 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 The tumor is 1.5 cm from the closest mesenteric/radial margin,5.5 cm from the proximal margin and 14 cm from the distal margin. Ink code:Serosa: BlackSection code: Ileal margin A1; colonic margin, A2. Sections of ileocecal valve adjacent to tumor in cassette A3. Random colon in A4. Sections of tumor to include the inked surface in A5- A8 and a section of the tumor adjacent to grossly normal colonic tissue in cassette A9. Engineering Mathematician sections are of lymph nodes in cassette A10 through A14. Appendix, A15; A16, five possible lymph nodes; A17 to A18, tumor to serosa; A19, six possible lymph nodes; A20, one possible lymph node bisected. MG/pl Performed. The interpretation of this case included the use of immunohistochemistry or special stains.MLH1, MSH2, MSH6,YPI9Dakikxi Slides Examined: In-house known positive controls were evaluated along with the test tissue. These control slides run alongside of the patients sample show appropriate staining. Internal positive and negative controls when available are evaluated Immunohistochemistry technical testing was performed at [facility], Pathology Laboratory where it was developed and its per formance characteristics were determined. It has not been cleared or approved by the U.S. Food and Drug Administration. The FDA has determined that such clearance or approval is not necessary. The testis used for clinical purposes. It should not be regarded as investigational or for research. This laboratory is certified under the Clinical Laboratory Improvement Amendments of 1988 (CLIA- 88) as qualified to perform high complexity clinical laboratory testing.[facility], Department of Pathology, [address] [place] [address], [facility], Department of Pathology, [address] [place] [address], [facility], [facility] of [facility], [address] [place] [address], [id number] METER 2020-09-20 11:08:00 Test Item Value Reference Range Interpretation Comments POC-GLUCOSE METER 230 mg/dL 70-110 H : Notified RN/MD: TESTED (BEAKER) (test code AT [address] = 1538) [place] [address]: Telecommunicator Supervisor/Techni edwina ID = [id number] for [place] Polo BASIC METABOLIC [id number] 05:02:00 Test Item Value Reference Range Interpretation [...] S NOT APPLICABLE FOR DIALYSIS PATIEN TS. Telecommunicator Supervisor ID - [id number] ID - [id number] ID - [id number] ID - JFNL43Ejasbmud ID - KIMF15Rcedgtnl ID - XSRT67Kedhlqzf ID - XOIV33Wlwlfrup ID - JCDB08Ohmbocon ID - XYLC57Hwhdviye ID - MYBZ54Pmdzblxz ID - CIEV19Etpknysw ID - MTQP84Tzhcczao ID - [id number] (HEMOGRAM ONLY)2020-09-20 04:46:00 Test Item Value Reference [...] 0-0 (BEAKER) (test code = 413) POCT-GLUCOSE [id number] 21:32:00 Test Item Value Reference Range Interpretation Comments POC-GLUCOSE METER 200 mg/dL 70-110 H : TESTED A T [address] (BEAKER) (test code [address], = 1538) [place] [address]: Telecommunicator Supervisor/Techni edwina ID = [id number] for Conchis Mixon POCT-GLUCOSE [id number] 15:28:00 Test Item Value Reference Range Interpretation Comments POC-GLUCOSE METER 258 mg/dL 70-110 H : TESTED A T [address] (BEAKER) (test code [address], = 1538) [place] [address]: Telecommunicator Supervisor/Techni edwina ID = [id number] for Iesha verma, Barbara POCT-GLUCOSE [id number] 11:17:00 Test Item Value Reference Range Interpretation Comments POC-GLUCOSE METER 188 mg/dL 70-110 H : TESTED A T [address] (BEAKER) (test code [address], = 1538) [place] [address]: Telecommunicator Supervisor/Techni edwina ID = [id number] for Iesha verma, Barbara POCT-GLUCOSE [id number] 08:58:00 Test Item Value Reference Range Interpretation Comments POC-GLUCOSE METER 188 mg/dL 70-110 H : TESTED A T [address] (BEAKER) (test code [address], = 1538) [place] [address]: Telecommunicator Supervisor/Techni edwina ID = [id number] for Iesha verma, Barbara POCT-GLUCOSE [id number] 20:56:00 Test Item Value Reference Range Interpretation Comments POC-GLUCOSE METER 217 mg/dL 70-110 H : TESTED A T [address] (BEAKER) (test code [address], = 1538) [place] [address]: Telecommunicator Supervisor/Techni edwina ID = [id number] for Sammie Aparicio POCT-GLUCOSE [id number] 16:52:00 Test Item Value Reference Range Interpretation Comments POC-GLUCOSE METER 137 mg/dL 70-110 H : TESTED A T [address] (BEAKER) (test code [address], = 1538) [place] [address]: Telecommunicator Supervisor/Techni edwina ID = [id number] for Irais Trent POCT-GLUCOSE [id number] 11:26:00 Test Item Value Reference Range Interpretation Comments POC-GLUCOSE METER 238 mg/dL 70-110 H : TESTED A T [address] (BEAKER) (test code [address], = 1538) [facility] [address]: Telecommunicator Supervisor/Techni edwina ID = [id number] for Barbara Mcneill POCT-GLUCOSE [id number] 08:12:00 Test Item Value Reference Range Interpretation Comments POC-GLUCOSE METER 199 mg/dL 70-110 H : TESTED A T [address] (BEAKER) (test code [address], = 1538) [place] [address]: Telecommunicator Supervisor/Techni edwina ID = [id number] for Barbara Mcneill BASIC METABOLIC [id number] 06:20:00 Test Item Value Reference Range Interpretation [...] S NOT APPLICABLE FOR DIALYSIS PATIEN TS. Telecommunicator Supervisor ID - [id number] ID - [id number] ID - QDKU26Kgqecdfo ID - PKMK91Oausbzll ID - EQAB44Seurdjjb ID - EXAQ47Dzofrkip ID - NMQE65Nhfvxfsk ID - NOIN55Bwsafcnd ID - VASE07Jcxaakdh ID - TCEE36Ugjafnow ID - OZXM07Nbcipkkx ID - [id number] (HEMOGRAM ONLY)2020-09-18 05:59:00 Test Item Value Reference [...] 0-0 (BEAKER) (test code = 413) POCT-GLUCOSE [id number] 21:39:00 Test Item Value Reference Range Interpretation Comments POC-GLUCOSE METER 192 mg/dL 70-110 H : TESTED A T [address] (BEAKER) ([facility] = 1538) [place] [address]: Telecommunicator Supervisor/Techni edwina ID = [id number] for Conchis Mixon POCT-GLUCOSE [id number] 13:18:00 Test Item Value Reference Range Interpretation Comments POC-GLUCOSE METER 175 mg/dL 70-110 H : TESTED A T [address] (BEAKER) ([facility] [address] [facility], = 1538) [place] [address]: Telecommunicator Supervisor/Techni edwina ID = [id number] for YordanZainab laoa POCT-GLUCOSE [id number] 09:12:00 Test Item Value Reference Range Interpretation Comments POC-GLUCOSE METER 209 mg/dL 70-110 H : TESTED A T [address] (BEAKER) (test code [address], = 1538) [facility] 77 [address]: Telecommunicator Supervisor/Techni edwina ID = [id number] for Yordan h, Nicki COMPREHENSIVE METABOLIC [id number] 06:04:00 Test Item Value Reference Range Interpretation [...] S NOT APPLICABLE FOR DIALYSIS PATIEN TS. Telecommunicator Supervisor ID - [id number] ID - [id number] ID - VHSD61Qjiqkdsl ID - VGZU99Rjfemvua ID - DZWI01Cvmmsrnz ID - OYKD41Ntpuzhtz ID - GLHO69Tmudzjeo ID - UAFX31Lfjzqyes ID - UWDQ53Qnsmhfmt ID - UXIP56Mjxaands ID - MCUL72Gczpqvjd ID - WRAY34Tqalvpfw ID - IJXW79Johpteyu ID - AHTI86Dzrtycbo ID - CSLJ07Dmoqmwhn ID - [id number] 06:01:00 Test Item Value Reference Range Interpretation Comments MAGNESIUM (BEAKER) (test code = 1.3 mg/dL 1.5-3.0 L 627) Telecommunicator Supervisor ID - [id number] ID - [id number] ID - [id number] ID - [id number] CBC W/PLT COUNT & AUTO [id number] 05:49:00 Test Item Value Reference Range Interpretation [...] PERCENT (BEAKER) (test code = 2801) POCT-GLUCOSE [id number] 19:43:00 Test Item Value Reference Range Interpretation Comments POC-GLUCOSE METER 159 mg/dL 70-110 H : TESTED A T [address] (BEAKER) (test code [address], = 1538) [place] [address]: Telecommunicator Supervisor/Techni edwina ID = [id number] for Tamie Schreiber POCT-GLUCOSE [id number] 15:21:00 Test Item Value Reference Range Interpretation Comments POC-GLUCOSE METER 177 mg/dL 70-110 H : TESTED A T [address] (BEAKER) ([facility], = 1538) [place] [address]: Telecommunicator Supervisor/Techni edwina ID = [id number] for Buff ord, Rula POCT-GLUCOSE [id number] 11:26:00 Test Item Value Reference Range Interpretation Comments POC-GLUCOSE METER 162 mg/dL 70-110 H : TESTED A T [address] (BEAKER) (test code [address], = 1538) [place] [address]: Telecommunicator Supervisor/Techni edwina ID = [id number] for Buff ord, Rula CBC W/PLT COUNT & AUTO [id number] 07:42:00 Test Item Value Reference Range Interpretation [...] (BEAKER) (test code = 2801) COMPREHENSIVE METABOLIC [id number] 06:05:00 Test Item Value Reference Range Interpretation [...] S NOT APPLICABLE FOR DIALYSIS PATIEN TS. Telecommunicator Supervisor ID - LITOOperator ID - LITOOperator ID - LITOOperator ID - LITOOperator ID - LITOOperator ID - LITOOperator ID - LITOOperator ID - LITOOperator ID - LITOOperator ID - LITOOperator ID - LITOOperator ID - LITOOperator ID - LITOOperator ID - LITOOperator ID - [id number] 06:02:00 Test Item Value Reference Range Interpretation Comments MAGNESIUM (BEAKER) (test code = 1.3 mg/dL 1.5-3.0 L 627) Telecommunicator Supervisor ID - LITOOperator ID - LITOOperator ID - LITOOperator ID - LITOBASIC METABOLIC [id number] 03:21:00 Test Item Value Reference Range Interpretation [...] S NOT APPLICABLE FOR DIALYSIS PATIEN TS. Telecommunicator Supervisor ID - LITOOperator ID - LITOOperator ID - LITOOperator ID - LITOOperator ID - LITOOperator ID - LITOOperator ID - LITOOperator ID - LITOOperator ID - LITOOperator ID - LITOOperator ID - LITOOperator ID - LITOOperator ID - LITOCBC W/PLT COUNT & AUTO [id number] 02:54:00 Test Item Value Reference Range Interpretation [...] PERCENT (BEAKER) (test code = 2801) POCT-GLUCOSE [id number] 22:27:00 Test Item Value Reference Range Interpretation Comments POC-GLUCOSE METER 178 mg/dL 70-110 H : TESTED A T [address] (BEAKER) (test code [facility] [address], = 1538) [facility] [address]: Telecommunicator Supervisor/Techni edwina ID = [id number] for Conchis Mixon POCT-GLUCOSE [id number] 17:28:00 Test Item Value Reference Range Interpretation Comments POC-GLUCOSE METER 216 mg/dL 70-110 H : TESTED A T [address] (BEAKER) (test code [address], = 1538) [place] [address]: Telecommunicator Supervisor/Techni edwina ID = [id number] for Buff ord, Rula POCT-GLUCOSE [id number] 11:17:00 Test Item Value Reference Range Interpretation Comments POC-GLUCOSE METER 155 mg/dL 70-110 H : TESTED A T [address] (BEAKER) (test code [address], = 1538) [place] [address]: Telecommunicator Supervisor/Techni edwina ID = [id number] for Buff ord, Rula POCT-GLUCOSE [id number] 07:16:00 Test Item Value Reference Range Interpretation Comments POC-GLUCOSE METER 152 mg/dL 70-110 H : TESTED A T [address] (BEAKER) (test code [address], = 1538) [place] [address]: Telecommunicator Supervisor/Techni edwina ID = [id number] for Buff ord, Rula POCT-GLUCOSE [id number] 20:28:00 Test Item Value Reference Range Interpretation Comments POC-GLUCOSE METER 176 mg/dL 70-110 H : TESTED A T [address] (BEAKER) (test code [address], = 1538) [place] [address]: Telecommunicator Supervisor/Techni edwina ID = [id number] for Todd renyTamie POCT-GLUCOSE [id number] 16:23:00 Test Item Value Reference Range Interpretation Comments POC-GLUCOSE METER 149 mg/dL 70-110 H : TESTED A T [address] (BEAKER) (test code [address], = 1538) [place] [address]: Telecommunicator Supervisor/Techni edwina ID = [id number] for Irais Trent POCT-GLUCOSE [id number] 12:24:00 Test Item Value Reference Range Interpretation Comments POC-GLUCOSE METER 175 mg/dL 70-110 H : TESTED A T [address] (BEAKER) (test code [address], = 1538) [facility] [address]: Telecommunicator Supervisor/Techni edwina ID = [id number] for Irais Trent POCT-GLUCOSE [id number] 08:03:00 Test Item Value Reference Range Interpretation Comments POC-GLUCOSE METER 158 mg/dL 70-110 H : TESTED A T [address] (BEAKER) (test code [address], = 1538) [facility] [address]: Telecommunicator Supervisor/Techni edwina ID = [id number] for Lulu uIrais BASIC METABOLIC [id number] 05:57:00 Test Item Value Reference Range Interpretation [...] S NOT APPLICABLE FOR DIALYSIS PATIEN TS. Telecommunicator Supervisor ID - JUSTINOperator ID - JUSTINOperator ID - JUSTINOperator ID - JUSTINOperator ID - JUSTINOperator ID - JUSTINOperator ID - JUSTINOperator ID - JUSTINOperator ID - JUSTINOperator ID - [id number] 05:41:00 Test Item Value Reference Range Interpretation Comments MAGNESIUM (BEAKER) (test code = 1.6 mg/dL 1.5-3.0 627) Telecommunicator Supervisor ID - JUSTINOperator ID - JUSTINOperator ID - JUSTINOperator ID - ELLIE CBC W/PLT COUNT & AUTO [id number] 05:30:00 Test Item Value Reference Range Interpretation [...] (BEAKER) (test code = 2801) HEMOGLOBIN AND [id number] 20:17:00 Test Item Value Reference Range Interpretation Comments HEMOGLOBIN (BEAKER) (test code = 7.6 GM/DL 13.0-16.8 L 410) HEMATOCRIT (BEAKER) (test code = 24.0 % 36.0-50.0 L 411) POCT-GLUCOSE [id number] 15:16:00 Test Item Value Reference Range Interpretation Comments POC-GLUCOSE METER 202 mg/dL 70-110 H : TESTED A T [address] (BEAKER) (test code [facility], = 1538) [place] [address]: Telecommunicator Supervisor/Techni edwina ID = [id number] for Buff ord, Rula HEMOGLOBIN AND [id number] 12:24:00 Test Item Value Reference Range Interpretation Comments HEMOGLOBIN (BEAKER) (test code = 8.5 GM/DL 13.0-16.8 L 410) HEMATOCRIT (BEAKER) (test code = 26.9 % 36.0-50.0 L 411) POCT-GLUCOSE [id number] 11:34:00 Test Item Value Reference Range Interpretation Comments POC-GLUCOSE METER 130 mg/dL 70-110 H : TESTED A T [address] (BEAKER) (test code [facility], = 1538) [place] [address]: Telecommunicator Supervisor/Techni edwina ID = [id number] for Buff ord, Rula CBC W/PLT COUNT & AUTO [id number] 07:42:00 Test Item Value Reference Range Interpretation [...] H PERCENT (BEAKER) (test code = 2801) [id number] 07:39:00 Test Item Value Reference Range Interpretation Comments MAGNESIUM (BEAKER) (test code = 1.4 mg/dL 1.5-3.0 L 627) Telecommunicator Supervisor ID - [id number] ID - yetv59Efilavje ID - thvl85Njjfawvd ID - [id number] BASIC METABOLIC [id number] 07:37:00 Test Item Value Reference Range Interpretation [...] S NOT APPLICABLE FOR DIALYSIS PATIEN TS. Telecommunicator Supervisor ID - [id number] ID - kbso47Ggyeheda ID - gqwx43Gnuyjqmr ID - doqq26Qftqrvcb ID - zamj12Buqzrvps ID - zpcc85Dakfvmyq ID - ocwf26Fzfagxow ID - mbpe85Vgkusjct ID - [id number], CTA [id number] 00:13:00Unlisted Reason for Exam - Click Yes and Enter Reason Below->No [facility] 1955 Sex: MFINAL REPORT CLINICAL HISTORY: Bright red blood per rectum, history of ascendingcolon neoplasm. FINDINGS: Multiple axial images of the abdomen and pelvis were performed before and after the uncomplicated administration of IV contrast, utilizing a CT aortogram protocol. Coronal andsagittal reformats were created. 3-D imaging on an independent workstation was also performed for opt imal visualization of the arterial system in accordance [...] aneurysm. No periaortic hematoma is present. There isno major branch vessel occlusion. 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 The aneurysm measures 2.1 x 2.1 cm. There is distal opacification ofthe SMA branches. The celiac axis and SMA [...] Distended with opacified urine. Reproductive organs: Prominent prostate gland. Other: No freeair, fluid or adenopathy Skeleton: No acute bony abnormality. IMPRESSION: No extravasated, intraluminal IV contrast within the GI tract to confirm a source of GI bleeding. Circumferential mural thickening of the ascending colon with adjacent inflammatory fat stranding. This correlates with the previous diagnosis of ascending colon malignancy. Several prominent but subcentimeter lymph nodes in the adjacent right lower quadrant may reflect metastatic disease. Scattered left colonic diverticulosis. 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 Cholelithiasis. Prominent prostate gland. Signed: Vicki Herzog Date/Time: 09/13/2020 00:13:53 CT, BRAIN, WITHOUT [id number] 23:46:00Unlisted Reason for Exam - Click Yes and Enter Reason Below->YesUnlisted Reason for Exam->s/p unwitnessed fall [facility] : 1955 Sex: MFINAL REPORT EXAM/TECHNIQUE: Noncontrast CT of the head. INDICATION: Unwitnessedfall. COMPARISON: None. FINDINGS: Hall-white differentiation is preserved. No acute intracranial hemorrhage. No extra-axial fluid collection. Ventricles are normal in appearance. Basal cisterns are patent. No midline shift. Cerebellar tonsils are normal in appearance. Orbits are normal. Paranasal sinuses are clear. Right mastoid effusion. Visualized nasopharynx is normal. No acute osseous processes or suspicious osseous lesion. Midline structures are normal. Visualized face and neck are unremarkable. Impression: No acute intracranial hemorrhage. Signed: Fredy Ozuna Verified Date/Time: 0 09/12/2020 23:46:45 POCT-GLUCOSE [id number] 22:41:00 Test Item Value Reference Range Interpretation Comments POC-GLUCOSE METER 163 mg/dL 70-110 H : TESTED A T SLSL 1317 (BEAKER) (test code [address], = 1538) [place] [id number]: Telecommunicator Supervisor/Techni edwina ID = [id number] for Conchis Mixon HEMOGLOBIN AND [id number] 22:25:00 Test Item Value Reference Range Interpretation Comments HEMOGLOBIN (BEAKER) (test code = 7.5 GM/DL 13.0-16.8 L 410) HEMATOCRIT (BEAKER) (test code = 24.7 % 36.0-50.0 L 411) HEMOGLOBIN AND [id number] 21:39:00 Test Item Value Reference Range Interpretation Comments HEMOGLOBIN (BEAKER) (test code = 8.4 GM/DL 13.0-16.8 L 410) HEMATOCRIT (BEAKER) (test code = 27.7 % 36.0-50.0 L 411) HEMOGLOBIN AND [id number] 18:21:00 Test Item Value Reference Range Interpretation Comments HEMOGLOBIN (BEAKER) (test code = 9.0 GM/DL 13.0-16.8 L 410) HEMATOCRIT (BEAKER) (test code = 30.2 % 36.0-50.0 L 411) POCT-GLUCOSE [id number] 17:42:00 Test Item Value Reference Range Interpretation Comments POC-GLUCOSE METER 116 mg/dL 70-110 H : TESTED A T SLSL 1317 (BEAKER) (test code [address], = 1538) [place] [id number]: Telecommunicator Supervisor/Techni edwina ID = [id number] for Yordan h, Nicki POCT-GLUCOSE [id number] 13:08:00 Test Item Value Reference Range Interpretation Comments POC-GLUCOSE METER 103 mg/dL 70-110 : TESTED A T SLSL 1317 (BEAKER) (test code [address], = 1538) [place] [id number]: Telecommunicator Supervisor/Techni edwina ID = [id number] for Yordan h, Nicki HEMOGLOBIN AND [id number] 10:37:00 Test Item Value Reference Range Interpretation Comments HEMOGLOBIN (BEAKER) (test code = 9.0 GM/DL 13.0-16.8 L 410) HEMATOCRIT (BEAKER) (test code = 29.3 % 36.0-50.0 L 411) SARS-COV2/RT-PCR ([facility])2020-09-12 10:26:00 Test Item Value Reference Range Interpretation Comments SARS-COV2/RT-PCR Negative Negative The SARS-Co V-2 target (test code = 0413178) nuclei c acids are not detected in [...] below the analytical limit of detection in thisspecimen.This Xpert Xpress SARS-CoV-2/Flu/RSV test is a rapid, real-time RT-PCR test intended for the qualitative detection of nucleic acid from Xpert Xpress SARS-CoV-2/Flu/RSV in a nasopharyngeal swabspecimen collected from individuals suspected of Xpert Xpress SARS-CoV-2/Flu/RSV by their healthcareprovider. Results from [facility] Xpert Xpress SARS-CoV-2/Flu/RSV test should be correlated with the clinical history, epidemiological data, and other data available to the clinician evaluating the patient. Viral nucleic acid may persist in vivo, independent of virus viability. Detection of analyte target(s)does not imply that the corresponding virus(es) are infectious or are the causative agents for clinical symptoms.This test has not been Food and Drug Administration (FDA) cleared or approved and has been authorized by FDA under an Emergency Use Authorization (EUA). This EUA will be effective until thedeclaration that circumstances exist justifying the authorization of the emergency use of in vitro diagnostic tests for detection and/or diagnosis of COVID-19 is terminated under Section 564(b)(2) of the Act or the EUA is revoked under Section 564(g) of the Act.Fact Sheet for Healthcare Providers:https ://www.[employer]igya/Documents/Xpert%20Xpress%20SARS%20CoV-2/Fact%20Sheets/302-390 2%38UBIJ-HVA-5%20HEALTHCARE%20PROVIDERS%20FACT%20SHEET.pdfFact Sheet for Healthcare Patients:https://www.[employer]/Docum ents/Xpert%20Xpress%20SARS%20Cov-2/Fact%20Sheets/302-3801%78PMJX-EXP-2%20PATIENT %20FACT%20SHEET.pdfHEMOGLOBIN [id number] 08:40:00 Test Item Value Reference Range Interpretation Comments HEMOGLOBIN A1C (BEAKER) (test code = 7.3 % 4.3-6.1 H 368) Telecommunicator Supervisor ID - [id number] 07:18:00 Test Item Value Reference Range Interpretation Comments PROTIME (BEAKER) 10.9 seconds 9.3-12.0 Final Infor mation (test code = 759) (Auto Outp ut) INR (BEAKER) (test 0.98 See_Comment Final Inf ormation code = 370) (Auto Output) [Automated mess age] The system [employer] generated this result transmitted ref erence range: <=5.90. The reference range was not used to int erpret this result as normal/abnormal . RECOMMENDED COUMADIN/WARFARIN INR THERAPY RANGESSTANDARD DOSE: 2.0 - 3.0 Includes: PROPHYLAXIS for venous thrombosis, systemic embolization; TREATMENT for venous thrombosis and/or pulmonary embolus.HIGH RISK: Target INR is 2.5-3.5 for patients with mechanical heart valves.CT, [id number] 06:22:00Unlisted Reason for Exam - Click Yes and Enter Reason Below->NoWill this procedure require oral contrast?->No [facility] : 1955 Sex: MFINAL REPORT EXAM/TECHNIQUE: CT [...] ducts are normal. Adrenals: Unremarkable. Pancreas: Unremarkable. Spleen:Unremarkable. Kidneys: Symmetric bilateral nephrograms. No hydronephrosis. No focal renal mass. Bowel: Colonic diverticulosis is present without CT findings of diverticulitis. Appendix is normal in appearance. There is mural thickening and fat stranding adjacent to the cecum. The small bowel and stomach are normal in appearance without findings of obstruction. Lymph nodes: No lymphadenopathy by size criteria. Mesentery: No ascites. No pneumoperitoneum. Pelvis: Prostatomegaly may represent benign pros tatic hyperplasia. Seminal vesicles are unremarkable. The bladder is unremarkable in appearance. Vessels: Unremarkable. Osseous: No acute osseous process. No suspicious osseous lesions. Impression: Pericecal inflammation may represent an infectious, ischemic, or other inflammatory process. Signed: Fredy Hernandez [facility] Verified Date/Time: 09/12/2020 06:22:15 OCCULT BLOOD, STOOL 2020-09-12 05:51:00 Test Item Value Reference Range Interpretation Comments FECAL OCCULT BLOOD (BEAKER) (test Positive Negative A code = 618) HEPATIC FUNCTION [id number] 05:28:00 Test Item Value Reference Range Interpretation [...] (test code = 6 U/L 5-50 347) Telecommunicator Supervisor ID - [id number] ID - [id number] ID - [id number] ID - [id number] ID - [id number] ID - [id number] ID - [id number] ID - [id number] ID - [id number] ID - [id number] METABOLIC [id number] 05:27:00 Test Item Value Reference Range Interpretation [...] S NOT APPLICABLE FOR DIALYSIS PATIEN TS. Telecommunicator Supervisor ID - [id number] ID - [id number] ID - [id number] ID - [id number] ID - [id number] ID - [id number] ID - [id number] ID - [id number] ID - [id number] W/PLT COUNT & AUTO [id number] 05:17:00 Test Item Value Reference Range Interpretation [...] H PERCENT (BEAKER) (test code = 2801) Urinalysis macro (dipstick) panel - [id number] 11:36:00 LeukocytesUrobilinogenProteinPhBloodSpecific GravityKetoneBilirubinGlucoseColorClarityNitriteMeridian Metro Urology
[2022-06-08 14:46] LABS: Hematocrit 41.9 % (39.6-49.0); MCV 77.7 fL (80-100); MPV 7.1 fL (7.6-11.3)
[2022-06-08 14:54] LABS: Bilirubin Direct 3.6 mg/dL (0-0.2); Bilirubin Total 4.6 mg/dL (0.2-1.0); Magnesium 1.3 mg/dL (1.6-2.4); Protein, Total 6.5 g/dL (6.4-8.2)
--- NOTE | 2022-06-08 15:25 | EDPHYS ---
Physician Documentation [facility] Name: Miguel Gonzalez Age: 67 yrs Sex: Male : 1955 Arrival Date: 06/08/2022 Time: 13:24 Bed 3 Private MD: ED Physician Peter Goode HPI: 06/08 15:24 This 67 yrs old Male presents to ER via Wheelchair with complaints of Breathing ms3 Difficulty, body aches. 15:24 67-year-old male with past medical history of colon cancer, diabetes, emphysema, ms3 hyperlipidemia, hypertension presents for shortness of breath and chest tightness that began on Sunday. Patient states his symptoms have not improved. Patient states his discomfort is a 3/10. Patient denies nausea, vomiting, fevers, chills.. 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 - Social history:: Smoking status: Patient reports the use of cigarette tobacco products, smokes one-half pack cigarettes per day. ROS: 15:24 Constitutional: Negative for fever, and chills. Eyes: Negative for injury, pain, ms3 redness, and discharge, Neck: Negative for injury, pain, and swelling. 15:24 Skin: Negative for injury, rash, and discoloration. 15:24 Cardiovascular: Positive for chest pain. 15:24 Respiratory: Positive for shortness of breath. 15:24 All other systems are negative. Exam: 15:24 Constitutional: This is a well developed, well nourished patient who is awake, alert, ms3 and in no acute distress. Head/Face: Normocephalic, atraumatic. Neck: Trachea midline, no cervical lymphadenopathy. Supple, full range of motion without nuchal rigidity, or vertebral point tenderness. No Meningismus. Chest/axilla: Normal chest wall appearance and motion. Nontender with no deformity. Cardiovascular: Regular rate and rhythm with a normal S1 and S2. No gallops, murmurs, or rubs. Normal PMI, no JVD. No pulse deficits. Respiratory: Lungs have equal breath sounds bilaterally, clear to auscultation and percussion. No rales, rhonchi or wheezes noted. No increased work of breathing, no retractions or nasal flaring. Abdomen/GI: Soft, non-tender, with normal bowel sounds. No distension or tympany. No guarding or rebound. No evidence of tenderness throughout. Skin: Warm, dry with normal turgor. Normal color with no rashes, no lesions, and no evidence of cellulitis. MS/ Extremity: Pulses equal, no cyanosis. Neurovascular intact. Full, normal range of motion. 16:43 ECG was reviewed by the Attending Physician. ms3 Vital Signs: 13:43 BP 106 / 71; Pulse 97; Resp 20; Temp 97.8; Pulse Ox 88% on R/A; Weight 111.58 kg; ll1 Height 6 ft. 4 in. ; Pain 0/10; 14:40 BP 113 / 66 LA; Pulse 94; Resp 25; Pulse Ox 92% on 4 lpm NC; ap3 15:35 BP 118 / 69; Pulse 94; Pulse Ox 93% on 4 lpm NC; ap3 13:43 Body Mass Index 29.94 (111.58 kg, 193.04 cm) ll1 13:43 Pain Scale: Adult ll1 MDM: 13:45 Patient medically screened. ms3 15:24 Differential diagnosis: Anemia CHF exacerbation, Chronic Obstructive Pulmonary Disease ms3 Myocardial Infarction pneumonia, pulmonary edema, Pulmonary Embolism Sepsis. Data reviewed: vital signs, nurses notes, lab test result(s), EKG, radiologic studies, and as a result, I will Transfer. Consideration of Admission/Observation Patient transferred. Independent interpretation of the following test(s) in the Emergency Department EKG: See my EKG interpretation above narrow gauge engineer: rate is 96 beats/min, Rhythm is normal sinus rhythm, regular, with no ectopy, Interpretation: normal rate, normal rhythm. Counseling: I had a detailed discussion with the patient and/or guardian regarding: the historical points, exam findings, and any diagnostic results supporting the discharge/admit diagnosis, lab results, radiology results, the need to transfer to another facility. ED course: Discussed lab findings with patient and his . Patient states he wishes to be transferred to [facility] where his oncologist Dr. Kamara is. [facility].. 15:40 ED course: [facility]. Patient is agreeable to be transferred ms3 to [facility]. 06/08 13:56 Order name: Basic Metabolic Panel; Complete Time: 15:09 ms3 06/08 13:56 Order name: CBC with Diff ms3 06/08 13:56 Order name: LFT's; Complete Time: 15:09 ms3 06/08 13:56 Order name: Magnesium; Complete Time: 15:09 ms3 06/08 13:56 Order name: NT PRO-BNP; Complete Time: 15:09 ms3 06/08 13:56 Order name: Troponin HS; Complete Time: 15:09 ms3 06/08 15:21 Order name: PT-INR; Complete Time: 16:04 ms3 06/08 15:44 Order name: Manual Differential EDMS 06/08 16:02 Order name: SARS RAPID; Complete Time: 16:42 ms3 06/08 17:37 Order name: Blood Culture Adult (2) ms3 06/08 13:56 Order name: XRAY Chest (1 view); Complete Time: 17:05 ms3 06/08 16:32 Order name: CT Chest For PE Angio; Complete Time: 17:32 ms3 06/08 16:32 Order name: CT Abd/Pelvis - IV Contrast Only; Complete Time: 18:09 ms3 06/08 13:56 Order name: EKG; Complete Time: 13:57 ms3 06/08 13:56 Order name: Cardiac monitoring; Complete Time: 14:38 ms3 06/08 13:56 Order name: EKG - Nurse/Tech; Complete Time: 14:38 ms3 06/08 13:56 Order name: IV Saline Lock; Complete Time: 14:28 ms3 06/08 13:56 Order name: Labs collected and sent; Complete Time: 14:28 ms3 06/08 13:56 Order name: O2 Per Protocol; Complete Time: 14:28 ms3 06/08 13:56 Order name: O2 Sat Monitoring; Complete Time: 14:28 ms3 EC:43 Rate is 90 beats/min. Rhythm is regular. QRS [place] is Normal. PA interval is normal. QRS ms3 interval is normal. QT interval is normal. Clinical impression: NSR w/ Non-specific ST/T Changes. Interpreted by me. Reviewed by me. Administered Medications: 16:15 Drug: morphine IVP or IV 2 mg Route: IVP; Infused Over: 4 mins; Site: right antecubital;ph 18:33 Follow up: Response: No adverse reaction; Pain is decreased ap3 18:10 Drug: Magnesium Sulfate IVPB 1 grams Route: IVPB; Infused Over: 1 hrs; Site: right ap3 antecubital; 18:46 Follow up: IV Status: Completed infusion ap3 Disposition Summary: 06/08/22 15:24 Transfer Ordered Reason: Higher level of care ms3 Condition: Stable ms3 Problem: new ms3 Symptoms: are unchanged ms3 Transfer Location: [facility](06/08/22 15:41) ms3 Accepting Physician: (06/08/22 18:46) ap3 Diagnosis - Hyperbilirubinemia ms3 - Nonspecific elevation of levels of transaminase and lactic acid dehydrogenase [LDH] ms3 - Hypo-osmolality and hyponatremia ms3 Forms: - Medication Reconciliation Form ms3 - SBAR form ms3 Signatures: Dispatcher [employer] EDMS Tianna Hightower RN RN Doretha Montiel RN RN ap3 Suri Groves Lynsay, RN RN ll1 Peter Goode DO DO ms3 Corrections: (The following items were deleted from the chart) 13:46 13:43 Social history: Smoking status: Patient/guardian denies using tobacco, ll1 ll1 15:25 15:24 Dr ms3 kj1 15:41 15:24 [facility] ms3 ms3 15:41 15:25 Dr cruz1 ms3 17:15 15:41 ms3 kj1 18:03 17:15 Dr cruz1 kj1 18:46 18:03 kj1 ap3
--- NOTE | 2022-06-08 15:25 | ER ---
Nurse's Notes [facility] Name: Miguel Gonzalez Age: 67 yrs Sex: Male : 1955 Arrival Date: 06/08/2022 Time: 13:24 Bed 3 Private MD: Diagnosis: Hyperbilirubinemia;Nonspecific elevation of levels of transaminase and lactic acid dehydrogenase [LDH];Hypo-osmolality and hyponatremia Presentation: 06/08 13:43 Chief complaint: Patient states: SOB, weak, no energy since Sunday. Had recent ll1 colonscopy. Coronavirus screen: Vaccine status: Patient reports receiving the 2nd dose of the covid vaccine. Client denies travel out of the [place] in the last 14 days. At this time, the client does not indicate any symptoms associated with coronavirus-19. Ebola Screen: Patient denies travel to an Ebola-affected area in the 21 days before illness onset. Initial Sepsis Screen: Does the patient meet any 2 criteria? No. Patient's initial sepsis screen is negative. Does the patient have a suspected source of infection? Yes: Productive cough/pneumonia. Risk Assessment: Do you want to hurt yourself or someone else? Patient reports no desire to harm self or others. Onset of symptoms was June 06, 2022. 13:43 Method Of Arrival: Wheelchair ll1 13:43 Acuity: MICHAEL 2 ll1 Triage Assessment: 13:46 General: Appears uncomfortable, ill, Behavior is calm, cooperative, appropriate for 3 age. Pain: Denies pain. Respiratory: Reports shortness of breath cough that is Onset: The symptoms/episode began/occurred yesterday, the patient has moderate shortness of breath. 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 - Social history:: Smoking status: Patient reports the use of cigarette tobacco products, smokes one-half pack cigarettes per day. Screenin:29 [facility] ED Fall Risk Assessment (Adult) History of falling in the last 3 months, ap3 including since admission No falls in past 3 months (0 pts). Abuse screen: Denies threats or abuse. Nutritional screening: No deficits noted. Tuberculosis screening: No symptoms or risk factors identified. Assessment: 14:29 Cardiovascular: Patient's skin is warm and dry. Respiratory: Airway is patent ap3 Respiratory effort is even, unlabored. 18:32 Respiratory: ap3 18:32 Cardiovascular: Rhythm is sinus rhythm. ap3 Vital Signs: 13:43 BP 106 / 71; Pulse 97; Resp 20; Temp 97.8; Pulse Ox 88% on R/A; Weight 111.58 kg; ll1 Height 6 ft. 4 in. ; Pain 0/10; 14:40 BP 113 / 66 LA; Pulse 94; Resp 25; Pulse Ox 92% on 4 lpm NC; ap3 15:35 BP 118 / 69; Pulse 94; Pulse Ox 93% on 4 lpm NC; ap3 13:43 Body Mass Index 29.94 (111.58 kg, 193.04 cm) ll1 13:43 Pain Scale: Adult ll1 ED Course: 13:34 Patient arrived in ED. mr 13:36 Peter Goode DO is Attending Physician. ms3 13:46 Triage completed. ll1 13:47 Arm band placed on Patient placed in an exam room, on a stretcher. ll1 14:16 XRAY Chest (1 view) In Process Unspecified. EDMS 14:21 Doretha Montiel, RN is Primary Nurse. ap3 14:28 Inserted saline lock: 20 gauge in right antecubital area, using aseptic technique. ap3 Blood collected. 14:29 Patient has correct armband on for positive identification. Bed in low position. Call ap3 light in reach. Side rails up X 1. Adult w/ patient. case monitor on. Pulse ox on. NIBP on. Door closed. Noise minimized. 16:57 CT Chest For PE Angio In Process Unspecified. EDMS 16:59 CT Abd/Pelvis - IV Contrast Only In Process Unspecified. EDMS 18:10 First set of blood cultures drawn by me. ap3 18:32 No provider procedures requiring assistance completed. Patient transferred, IV remains ap3 in place. Administered Medications: 16:15 Drug: morphine IVP or IV 2 mg Route: IVP; Infused Over: 4 mins; Site: right antecubital;ph 18:33 Follow up: Response: No adverse reaction; Pain is decreased ap3 18:10 Drug: Magnesium Sulfate IVPB 1 grams Route: IVPB; Infused Over: 1 hrs; Site: right ap3 antecubital; 18:46 Follow up: IV Status: Completed infusion ap3 Medication: 18:32 VIS not applicable for this client. ap3 Outcome: 15:24 ER care complete, transfer ordered by . ms3 17:15 Patient left the ED. kj1 18:32 Transferred by ground EMS to [facility]. ap3 18:32 Condition: stable 18:32 Instructed on the need for transfer. 18:46 Patient left the ED. ap3 Signatures: Dispatcher [employer] EDMS ChenCammy burris Patricia RN RN Doretha Osorio RN RN ap3 Suri Groves1 Mayuri Siegel RN RN ll1 Peter Goode DO DO ms3 Corrections: (The following items were deleted from the chart) 13:46 13:43 Social history: Smoking status: Patient/guardian denies using tobacco, ll1 ll1
[2022-06-08 15:46] LABS: Platelet Estimate DECR
[2022-06-08 15:47] LABS: Blood Morphology Comment NOT SEEN (NOT SEEN)
[2022-06-08 15:54] LABS: Protime INR 2.08
[2022-06-08] MEDS ORDERED: MORPHINE 2 MG/ML SYR ONE (16:12)
[2022-06-08 16:37] LABS: SARS-CoV-2 Antigen Rapid Res Negative (Negative)
--- NOTE | 2022-06-08 17:00 | RAD REPORT ---
EXAM DESCRIPTION: Beata Single View06/08/2022 2:14 pm CLINICAL HISTORY: SOB COMPARISON: No comparisons TECHNIQUE: Portable AP view of the chest. FINDINGS: Right IJ medication port, with catheter tip projecting at the distal SVC. The lungs show m inor left basal opacities. No pneumothorax or effusion. The cardiomediastinal contours are unremarkab le. IMPRESSION: Minor left basal airspace opacities, may represent atelectasis or early airspace disease .
--- NOTE | 2022-06-08 17:30 | RAD REPORT ---
EXAM DESCRIPTION: CT - Chest For Pe Angio - 06/08/2022 4:55 pm CLINICAL HISTORY: DYSPNEA COMPARISON: No comparisonsAbdomen Pelvis W Contrast dated 06/08/2022 TECHNIQUE: Thin axial CT images of the chest were obtained following administration of 100 mL Isovue 370 IV contrast. Multiplanar reconstructions, and maximum intensity projection reconstructions were generated and reviewed. Exam utilizes a protocol for optimal evaluation of pulmonary arterial tree. All CT scans are performed using dose optimization technique as appropriate and may include automated exposure control or mA/KV adjustment according to patient size. FINDINGS: Pulmonary arteries are normal. No emboli or other suspicious finding. Ectasia of the ascending thoracic aorta, measuring 4.8 centimeter in caliber No mass or infiltrate in the lung parenchyma. No pleural thickening or pleural effusion. No pneumotho rax. No abnormal mediastinal or hilar masses or lymphadenopathy seen. No chest wall mass or abnormal axill iary lymphadenopathy. Upper abdominal structures are evaluated separately on dedicated CT of the abdomen. IMPRESSION: No evidence of acute central pulmonary emboli. Ectasia of the ascending thoracic aorta measuring 4.8 centimeter in caliber.
[2022-06-08 17:35] VITALS: TEMP 97.8
--- NOTE | 2022-06-08 17:45 | RAD REPORT ---
EXAM DESCRIPTION: CT - Abdomen Pelvis W Contrast - 06/08/2022 4:56 pm CLINICAL HISTORY: elevated LFTs, hyperbilirubinemia COMPARISON: Chest For Pe Angio dated 06/08/2022 TECHNIQUE: Thin cut axial CT imaging of the abdomen and pelvis was performed following intravenous a dministration of 100 mL Isovue 300. Multiplanar reformats were generated and reviewed. All CT scans are performed using dose optimization technique as appropriate and may include automated exposure control or mA/KV adjustment according to patient size. FINDINGS: Trace left pleural effusion, not mentioned on the CT report. . The liver, adrenal glands, and pancreas show no suspicious findings. The spleen is enlarged, and bulky, measuring 17 centimeter in long axis. Geographic regions of hypoen hancement throughout the periphery of the spleen. Gallbladder is contracted over multiple stones. Biliary tree shows no evidence of intra or extrahepat ic biliary ductal dilation. Symmetric renal function is seen with no hydronephrosis or suspicious renal mass. 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 No dilated bowel loops or bowel wall thickening. No free air, free fluid or inflammatory stranding. N o hernia, mass or bulky lymphadenopathy. The urinary bladder is without significant finding. No suspicious bony findings. IMPRESSION: Splenic enlargement with geographic regions of hypoenhancement, which could relate to sp lenic infarct. 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 Trace left pleural effusion. No other acute process. The findings were communicated to Peter Goode on 06/08/2022 at 17:40 hours.
[2022-06-08] MEDS ORDERED: MAGNESIUM SULFATE 1 gm IVPB 1 GM/100 ML BAG IV ONE (17:58)
[2022-06-08 19:06] VITALS: BP 118/69; O2SAT 93
--- NOTE | 2022-06-09 07:01 | EKG ---
Test Date: 2022-06-08 Test Time: 14:35:01 Perl Programmer: ALP MEASUREMENT RESULTS: Intervals: Rate: 90 VT: 148 QRSD: 100 QT: 390 QTc: 477 [place]: P: 59 VT: 148 QRS: -82 T: 67 INTERPRETIVE STATEMENTS: Normal sinus rhythm with sinus arrhythmia Left axis deviation Abnormal ECG No previous ECG available for comparison Electronically Signed On 06-09-22 06:59:49 CDT by Juan Wood
== END 2022-06-08 18:46 | disposition short-term general hospital (02) ==
LOC: ER 13:24
DX: E80.6 Other disorders of bilirubin metabolism (principal); E87.1 Hypo-osmolality and hyponatremia; R74.01 Elevation of levels of liver transaminase levels; R74.02 Elevation of levels of lactic acid dehydrogenase [LDH]; Z20.822 Contact with and (suspected) exposure to COVID-19
CPT/HCPCS: 93005; 87040; 85025; 80048; 83735; 85610; 80076; 84484; 83880; 71275; 74177; 71045; 87811; Q9967; J3475; J2270